=== PATIENT | male | born 1940 | race Caucasian/White ===

== ENCOUNTER 2016-11-16 21:39 | Inpatient (IN) | payer OTHER ==
[2016-11-16] MEDS ORDERED: ASPIRIN PO STA (21:47)
[2016-11-16] MEDS ORDERED: NITROGLYCERIN SL PRN (21:47)
--- NOTE | 2016-11-16 22:15 | PROVIDER DOCUMENTATION ---
HPI-Chest Pain - General Source: patient, family - History of Present Illness-CP Location: reports: central Chest Pain Radiation: reports: no radiation Quality of Pain: reports: other (Heavy) Severity in ED: mild Onset/Duration: 1-3 hours ago Timing: gone now Context/Activities at Onset: reports: light activity Associated Symptoms: reports: fatigue, weakness. denies: abdominal pain, back pain, diaphoresis, dizziness, edema, fever/chills, headache, heartburn, nausea, rash, shortness of breath, swelling/lump in chest, syncope, vomiting Nitro Today/Relief: 0.4 mg x 1, provided at home <Yaya Melendez - Last Filed: 11/16/16 23:56> <Jonathan Reid - Last Filed: 11/17/16 00:11> - General Chief Complaint: Chest Pain Stated Complaint: cp Time Seen by Provider: 11/16/16 21:43 Allergies/Adverse Reactions: Patient Allergies Allergy/AdvReac Type Severity Reaction Status Date / Time morphine Allergy Mild ITCHING Verified 11/16/16 22:20 aspirin AdvReac Intermediate PUD Verified 11/16/16 22:20 Home Medications: Home Medication List Medication Instructions Recorded Confirmed Last Taken Type Levothyroxine [Synthroid] 150 microgm PO DAILY 06/16/12 11/16/16 11/16/16 History SIMVAstatin [Zocor] 20 mg PO QHS 06/16/12 11/16/16 11/15/16 History Digoxin 125 mcg PO DAILY 06/23/12 11/16/16 11/16/16 History Oxycodone/APAP 10 mg/325 mg 1 - 2 each PO Q4-6H PRN PRN #40 08/07/12 11/16/16 Rx [Percocet-10] tablet Amiodarone [Cordarone] 200 mg PO DIRECTED 01/28/14 11/16/16 11/15/16 History Diltiazem HCl [Cartia Xt] 120 mg PO BID 01/28/14 11/16/16 11/16/16 History Theophylline E.r. [Castro-Dur] 300 mg PO Q12HR 01/28/14 11/16/16 11/16/16 08:00 History Memantine [Namenda] 1 tab PO BID 0311/16/16 11/16/16 08:00 History Tamsulosin [Flomax] 0.4 mg PO DAILY #30 capsule 11/10/15 11/16/16 11/15/16 Rx Warfarin Sodium [Coumadin] 6 mg PO QHS 03/09/16 11/16/16 11/15/16 History Metformin HCl 500 mg PO BID 11/16/16 11/16/16 11/16/16 History - History of Present Illness-CP Nature of Presenting Problem: Pt is a 76 yom who presents to ER via EMS with CC of chest pain with onset of 2100 tonight. Pt has hx of dementia, and multiple cardiac issues, but reports that pt has been weak and lethargic all day, trouble walking, confused, and had a poor appetite. reports that she gave pt nitro before EMS arrived , and pt now denies chest pain. (Yaya Melendez) Review of Systems - Adult - REVIEW OF SYSTEMS - ADULT Constitutional: reports: fatique. denies: chills, fever, night sweats, weight gain, weight loss Eyes: reports: no symptoms reported Ears, Nose, Mouth & Throat: reports: no symptoms reported Cardiovascular: reports: chest pain, irregular heart rate (hx of A-fib). denies : edema, heart murmur, orthopnea, palpitations, poor circulation, PND, syncope Respiratory: denies: chronic cough, cough, dyspnea on exertion, excessive sputum production, hemoptysis, pleurisy, shortness of breath, wheezing Gastrointestinal: reports: no symptoms reported Genitourinary: reports: no symptoms reported Musculoskeletal: reports: muscle weakness. denies: bone pain, back pain, frequent leg cramps, joint pain, joint swelling, muscle aches, neck pain Integumentary: reports: no symptoms reported Neurological: reports: no symptoms reported Psychiatric: reports: no symptoms reported Endocrine: reports: no symptoms reported Hematologic/Lymphatic: reports: no symptoms reported Allergic/Immunologic: reports: no symptoms reported All Other Systems: Reviewed and Negative <Yaya Melendez - Last Filed: 11/16/16 23:56> Past History - Adult - PAST MEDICAL HISTORY-ADULT Review of Records: reports: Nursing Assessment Review, Medications Reviewed Cardiovascular: reports: cardiac disease, A-Fib, aortic disease (AAA), CAD, HTN , hyperlipidemia Respiratory: reports: COPD, lung disease (asbestoisis), other (histoplasmosis) Genitourinary: reports: other (BPH) Neurological: reports: Alzheimer's, dementia, TIA Endocrine/Immune: reports: thyroid disorder - PRIOR SURGERIES/PROCEDURES Surgical/Procedure History: reports: CABG, hernia repair, joint replacement, other (cardiac ablation, AAA repair) - IMMUNIZATION STATUS Childhood Immunizations: See Nurse Assessment Flu Vaccine: See Nurse Assessment <Yaya Melendez - Last Filed: 11/16/16 23:56> Physical Exam-General - PHYSICAL EXAM-ADULT Initial Vital Signs Reviewed: Yes - CONSTITUTIONAL General Appearance: appears well, alert, moderate distress, anxious. negative: no apparent distress, mild distress - RESPIRATORY Respiratory: chest non-tender, lungs clear, normal breath sounds, no pleuratic chest pain, no respiratory distress, no accessory muscle use. negative: respiratory distress, decreased breath sounds, accessory muscle use, wheezing - CARDIOVASCULAR Cardiovascular: normal peripheral pulses, tachycardia, irregularly irregular. negative: regular rate, rhythm, bradycardia - GASTROINTESTINAL (ABDOMEN) Abdominal Exam: normal bowel sounds, non tender, soft, no organomegaly, no pulsatile mass. negative: abnormal bowel sounds, distended, tenderness - NEUROLOGIC Neurologic: grossly normal, no motor/sensory deficits. negative: facial droop, focal weakness, motor weakness, sensory deficit - PSYCHIATRIC Psych/Mental Status: normal thought content, normal thought process, anxious, other (disoriented to time). negative: normal mood/affect, oriented x 3 <Yaya Melendez - Last Filed: 11/16/16 23:56> Progress - REASSESSMENT Reassessment #1 Time Reassessed: 23:52 Status: other (Dr. Reid discussed results of pt's labs and pt's does not feel comfortable for pt to be discharged.) - EKG 1 Time of EKG reading by physician:: 21:42 EKG Read and Signed by:: Jonathan Reid EKG Interpretation (*Must complete 3 of following elements*): Abnormal (L axis deviation; LBBB) Rate: 113 Rhythm: A-fib with rapid ventricular responses - XRAY 1 XRAY: Bilateral XRAY Study: Chest Impression: See EMR Report XRAY Interpretation: Cardiomegaly, No acute infiltrate, possible early mild CHF <Yaya Melendez - Last Filed: 11/16/16 23:56> Departure - Departure Time of Disposition Order: 23:53 Certified Medical Emergency: Emergent <Yaya Melendez - Last Filed: 11/16/16 23:56> - Departure Time of Disposition Order: 00:11 Certified Medical Emergency: Emergent <Jonathan Reid - Last Filed: 11/17/16 00:11> - Departure DIAGNOSIS: Shortness of breath Chest pain Qualifiers: Chest pain type: unspecified Qualified Code(s): R07.9 - Chest pain, unspecified Atrial fibrillation Qualifiers: Atrial fibrillation type: unspecified Qualified Code(s): I48.91 - Unspecified atrial fibrillation Disposition: ADMITTED INPATIENT 09 Condition: Stable Referrals: Ralf Yao [Primary Care Provider] - Attestation - Scribe Verification/Attestation Scribe:: Yaya Melendez Acting as Scribe for:: Jonathan Reid Scribe documention review:: This chart was documented by a scribe and accurately reflects the service the provider performed and the decisions made by the provider. <Yaya Melendez - Last Filed: 11/16/16 23:56> Physician Attestation
[2016-11-16 22:24] LABS: BASO% 0.3 % (0.0-0.8); EOS# 0.01 X1000 (0.0-0.7); EOS% 0.1 % (0.0-10.0); HEMATOCRIT 46.1 % (42.0-52.0); HEMOGLOBIN 15.6 g/dL (14.0-18.0); LYMPH# 0.26 X1000 (1.2-3.4); LYMPH% 3.7 % (20.5-51.1); MANUAL DIFF NEEDED? NO; MCHC 33.8 g/dL (33-37); MCV 94.5 FL (81-99); MONO# 0.28 X1000 (0.11-0.59); MPV 11.2 FL (7.4-10.4); NEUT% 91.9 % (42.2-75.2); PLT 135 X1000 (130-400); RBC 4.88 XMIL (4.7-6.1)
[2016-11-16 22:30] LABS: INR 1.6; PTT 33.2 Seconds (22.0-36.0)
[2016-11-16 23:04] LABS: AGAP 15; ALBUMIN 3.8 g/dL (3.5-5.0); ALKALINE PHOSPHATASE 68 U/L (32-122); BUN 12 mg/dL (8-22); CALCIUM 9.1 mg/dL (8.8-10.2); CHLORIDE 99 mmol/L (98-107); CK PROFILE 60 U/L (24-204); COSMO 273; GOT 20 U/L (10-34); GPT 17 U/L (10-44); MAGNESIUM 1.3 mg/dL (1.5-2.7); POTASSIUM 3.9 mmol/L (3.5-5.1); SODIUM 135 mmol/L (136-145); TCO2 21 mmol/L (25-35); TOTAL BILIRUBIN 0.91 mg/dL (0.20-1.00); TOTAL PROTEIN 6.8 g/dL (6.3-8.3)
[2016-11-17] MEDS ORDERED: MAGNESIUM SULFATE 2 GM/S.W.I. 50 ML IV ONE (01:25)
[2016-11-17] MEDS ORDERED: ZOFRAN IV PRN (02:13)
[2016-11-17] MEDS ORDERED: LASIX IV ONE (02:20)
[2016-11-17 03:15] LABS: HEMOGLOBIN A1C 6.9 % (4.8-6.0)
--- NOTE | 2016-11-17 05:31 | HISTORY AND PHYSICAL ---
CHIEF COMPLAINT: Chest pain. PRIMARY CARE PROVIDER: Dr. Ralf Yao. EXHAUSTER: Dr. Sigala. HISTORY OF PRESENT ILLNESS: This is a 76-year-old male who presented to the emergency room with a complaint of chest pain. He stated that it had no radiation. It was a heavy feeling, midsternal. Mild pain, roughly 1-3 hours prior to arrival. He denied any nausea, vomiting, or shortness of breath associated with the pain. He is demented. Does have a history of dementia, coronary artery disease, status post coronary artery bypass graft, and emphysema. His was at the bedside. Stated that he did have complaint of chest pain so they brought him into the emergency room. At this time, he is oriented to person and place. Disoriented to time and situation. He answered some questions reasonably well but most information was obtained from the . The patient also has diabetes mellitus type 2 and atrial fibrillation for which he is chronically anticoagulated with Coumadin. Laboratory data and a chest x-ray was obtained in the emergency room. Chest x-ray showed mildly increased pulmonary vascular markings. Laboratory data was grossly normal other than a proBNP elevated at 3469 and a magnesium of 1.3. The patient will be given 20 mg of IV Lasix in the emergency room and 2 g of magnesium. He will then be admitted to CICU for further evaluation and treatment. PAST MEDICAL HISTORY: 1. Hypertension. 2. Atrial fibrillation with chronic Coumadin anticoagulation. 3. Coronary artery disease, status post coronary artery bypass grafting. 4. TIA. 5. Dementia. 6. Emphysema. 7. Abdominal aortic aneurysm. 8. Diabetes mellitus type 2. PREVIOUS SURGICAL HISTORY: 1. Hernia ablation. 2. Coronary artery bypass graft in 1991. 3. Bilateral total knee arthroplasty. FAMILY HISTORY: Mom had diabetes mellitus and coronary artery disease, has since . Sister, he has 1 living and 1 . Both had coronary artery disease. He has a son that is in his 50s that at age 50 had 4 cardiac stents and was told that he, within the next 10 years, would have coronary artery bypass grafting himself. SOCIAL HISTORY: He lives with his . He denies any tobacco, alcohol, or illicit drug use or abuse. ALLERGIES: Morphine and aspirin. HOME MEDICATIONS: 1. Synthroid 150 mcg p.o. daily. 2. Zocor 20 mg p.o. at bedtime. 3. Digoxin 125 mcg p.o. daily. 4. Percocet 10 mg 1-2 p.o. q.4-6 p.r.n. 5. Amiodarone 200 mg p.o. every Friday, Friday, and Friday. 6. Cardizem 120 mg extended release p.o. b.i.d. 7. Theophylline 300 mg p.o. q.12 hours. 8. Namenda 1 tablet p.o. b.i.d. 9. Flomax 0.4 mg p.o. daily. 10. Coumadin 6 mg p.o. at bedtime. 11. Metformin 500 mg p.o. b.i.d. REVIEW OF SYSTEMS: Fourteen point review of systems conducted with the patient. He admitted to chest pain. Denied all other complaints. However, he is noted to have dementia. The at the bedside did not make mention of any other complaints. Pertinent positives listed above in the HPI. PHYSICAL EXAMINATION: VITAL SIGNS: Temperature 100, pulse 103, respirations 22, blood pressure 139/82, oxygen saturation 96% on 3 L nasal cannula. GENERAL: Pleasantly confused, 76-year-old male lying on the ER stretcher in no acute distress. Oriented to person and place. Disoriented to time and situation. HEENT: Head is atraumatic, normocephalic. Pupils equal, round, reactive to light. Extraocular eye movement intact. Sclerae are anicteric. Conjunctivae are pink. Oral mucosa is moist. NECK: Supple. No JVD. No thyromegaly. Trachea is midline. No cervical lymphadenopathy. CARDIAC: Irregularly irregular. S1 and S2 are appreciated. No murmurs, gallops, rubs. CHEST WALL: Nontender to palpation. LUNGS: Decreased bilaterally. No rhonchi. Bilateral crepitations noted at bases. No rales. Symmetrical rise and fall with respirations. ABDOMEN: Soft, nondistended, nontender. Bowel sounds present in all 4 quadrants. Normoactive. No pulsatile mass. No organomegaly. EXTREMITIES: No clubbing, cyanosis, or edema. NEUROLOGICAL: Patient follows commands. He is only oriented x2, related to dementia. He is oriented to person and place. Disoriented to time and situation. Cranial nerves 2-12 appear to be grossly intact. DIAGNOSTIC DATA: Chest x-ray shows increased pulmonary vascular markings. LABORATORY DATA: CBC within normal limits. Coagulations: PT 17, INR 1.6, PTT 33.2. D-dimer 0.8. Sodium 135, potassium 3.9, chloride 99, carbon dioxide 21, BUN 12, creatinine 1.1, glucose 154. Magnesium 1.3. CK 60, troponin less than 0.01. ProBNP 3469. ASSESSMENT: 1. Chest pain, rule out acute myocardial infarction. 2. Apparent congestive heart failure with mild exacerbation. Last echocardiogram was on 01/28/2014 which showed an ejection fraction of 35-40%. 3. Diabetes mellitus type 2. 4. Hypertension. 5. Dementia. 6. Coronary artery disease, status post coronary artery bypass grafting. PLAN: Continue patient's home medications aside from Namenda which the does not know his dosing as well as his oxycodone as he denies pain at this time. For atrial fibrillation, continue amiodarone, digoxin, and Cardizem. For diabetes mellitus, we will continue his metformin, check fingersticks q.a.c. and at bedtime. Related to his atrial fibrillation, we also continued his Coumadin. Check INR daily. The patient has hyperlipidemia. Continue Zocor. The patient also was noted as having Synthroid as a medication. Apparently, he also has hypothyroidism. We will check a TSH level and continue this. Check a theophylline level. Consult Dr. Sigala. As noted above, Lasix 20 mg was given in the emergency room. Trend cardiac enzymes. The patient is allergic to aspirin. We will not give aspirin daily. Check hemoglobin A1c. Further recommendations per patient's clinical course. Dictated by CARLIN Torres for Bryan Kumar MD
--- NOTE | 2016-11-17 06:04 | EKG Report ---
Test Performed on : 11/16/2016 9:42:58 PM Test Reason : CP Blood Pressure : / mmHG Vent. Rate : 113 BPM Atrial Rate : 113 BPM P-R Int : 000 ms QRS Dur : 142 ms QT Int : 360 ms P-R-T Axes : 000 -38 079 degrees QTc Int : 493 ms Atrial fibrillation. with rapid ventricular response. Left axis deviation Left bundle branch block Abnormal ECG When compared with ECG of 09-MAR-2016 21:59, Atrial fibrillation. has replaced Sinus rhythm. Vent. rate has increased BY 53 BPM Nonspecific T wave abnormality no longer evident in Inferior leads Unconfirmed Result
[2016-11-17] MEDS ORDERED: SYNTHROID PO SCH (07:00)
[2016-11-17] MEDS: PRILOSEC PO SCH (07:00)
[2016-11-17] MEDS: GLUCOPHAGE PO SCH ×2 (08:00→17:49)
[2016-11-17] MEDS: LANOXIN PO SCH (08:40)
[2016-11-17] MEDS: CARDIZEM CD PO SCH ×2 (08:40→20:08)
[2016-11-17] MEDS: FLOMAX PO SCH (08:40)
[2016-11-17] MEDS: NON-FORMULARY MED PO SCH ×2 (08:41→20:09)
[2016-11-17] MEDS ORDERED: ASPIRIN PO SCH (09:00)
[2016-11-17 10:51] LABS: INR 1.42; PROTIME 15.1 Seconds (9.2-11.7)
--- NOTE | 2016-11-17 13:41 | Diag Imaging Result Document ---
PROCEDURE NAME: CHEST-PORTABLE - 11/16/2016 SINGLE FRONTAL RADIOGRAPH OF THE CHEST: COMPARISON: 03/09/2016. FINDINGS: The lungs are grossly clear. There is no definite pleural fluid collection. There is suggestion of mild cardiomegaly that is stable. There are stable CABG changes. IMPRESSION: Stable mild cardiomegaly. No definite acute pathology.
--- NOTE | 2016-11-17 16:40 | ECHO REPORT ---
ORDER DATE: 11/17/2016 ECHOCARDIOGRAPHIC MEASUREMENTS: 1. Interventricular septum 1.7. Left ventricular posterior wall 1.7. Diastolic diameter 4.0. Left atrium 4.6. Aorta 3.6. Aortic valve leaflets were sclerosed, trileaflet, the normally pulmonic valve was normal. Tricuspid valve was normal. Mitral valve was normal. There is mild mitral regurgitation. 2. Mild tricuspid regurgitation. Peak velocity across the tricuspid valve was 2.7 m/sec. Pulmonary artery systolic pressure 41-45 mmHg. 3. There is biatrial enlargement. 4. Normal left ventricular cavity size. Estimated ejection fraction of 30-35%. There is global hypokinesis. 5. There is no pericardial effusion or obvious intracardiac mass or thrombus seen. 6. There is no aortic stenosis or regurgitation.
--- NOTE | 2016-11-17 17:49 | CONSULTATION ---
DATE OF CONSULTATION: 11/17/2016 REASON FOR CONSULTATION: Cardiology consulted for chest pain, congestion and coronary artery bypass grafting. HISTORY OF PRESENT ILLNESS: A 76-year-old gentleman, came to the emergency room with chest discomfort. He felt heaviness in his chest. He has mild dementia and his granddaughter was there present during my examination. The chest discomfort was about 1-2 hours prior to arrival, not associated with nausea, vomiting. Patient came, was admitted. His cardiac enzymes were negative. Cardiology was consulted. Prior to this, he is followed up in our office here. He has had coronary artery bypass grafting, has abdominal aortic aneurysm, chronic atrial fibrillation. He denies any palpitations, there is no dizziness or syncope. Denies any abdominal discomfort. He is on anticoagulation therapy. Denies any bleeding diatheses. Chest pain nonradiating. REVIEW OF SYSTEMS: GI: There is no history of nausea, vomiting, or diarrhea. There is no history of hematemesis or melena. Central nervous system: No focal weakness to suggest a CVA or TIA. : There is no dysuria or hematuria. PAST MEDICAL HISTORY: 1. Coronary artery disease, status post coronary artery bypass grafting 20 [place] ago in [place]. 2. Dementia. 3. History of TIA. 4. Atrial fibrillation. 5. Hypertension. 6. Abdominal aorta aneurysm. 7. Diabetes. 8. Emphysema. 9. Bilateral total knee arthroplasty. 10. Hernia repair. HOME MEDICATIONS: 1. Synthroid 150. 2. Zocor 20. 3. Digoxin 125. 4. Percocet. 5. Amiodarone 200 mg Friday, Friday, Friday. 6. Cardizem 120. 7. Theophylline 300 mg. 8. Namenda 1 b.i.d. 9. Flomax 0.4. 10. Coumadin as directed. 11. Metformin 500 be 0 b.i.d. ALLERGIES: Patient is allergic to aspirin. 14 point Review of system was done as above. PHYSICAL EXAMINATION: Vital signs: Blood pressure was 130/80. Cardiovascular System: Normal jugular venous pressure. There is no thyromegaly, there is no carotid bruit. First and second heart sounds were heard. There is no S3 gallop. Respiratory System: Normal air entry. A few scattered wheezes. Abdomen: Soft, nontender. There was no guarding or rigidity. Bowel sounds were heard. Central nervous system: Alert and oriented, was moving all 4 extremities. Extremities: Examination of extremities revealed no pedal edema. HEENT: Atraumatic, normocephalic. Pupils were equal and reacting to light. LABORATORY: Revealed sodium 135, potassium 3.9, BUN 12, creatinine 1.1. Cardiac enzymes were negative. Hematology: Hemoglobin 15.6, hematocrit 46, platelet count of 135,000. ASSESSMENT AND PLAN: 1. Mr. Dominique witt is a 76-year-old, gentleman with history of coronary artery disease, status post coronary artery bypass grafting, chronic atrial fibrillation, comes with complaints of chest pain. He has been ruled out for myocardial infarction by cardiac enzymes. We will get an echocardiogram to assess cardiac and valvular function. We will also set him up to undergo a Cardiolite stress test to rule out ischemia. 2. Chronic atrial fibrillation. Rate is under control. He is anticoagulated. I have not made any other changes to his medications. He is on a combination of digoxin and amiodarone. We will check serum digoxin levels in the morning. 3. As far as abdominal aortic aneurysm is concerned, he has history of abdominal aortic aneurysm. The last computed tomography scan was done in 2012. We will set him up to undergo a computed tomography angiogram of his aorta to assess for the abdominal aortic aneurysm as well. His last computed tomography scan was on 06/01/2013, which revealed infrarenal abdominal aorta aneurysm measuring 4 cm and in some views up to 5 cm per report. 4. There was no hydronephrosis at that time. There was diverticulosis noted at that time as well. Thank you for the consult. We will follow hospital course.
[2016-11-17] MEDS: ZOCOR PO SCH (20:08)
[2016-11-17] MEDS: COUMADIN PO SCH (20:08)
[2016-11-18 05:17] LABS: MANUAL DIFF NEEDED? NO
[2016-11-18 05:26] LABS: INR 1.2; PROTIME 12.7 Seconds (9.2-11.7)
[2016-11-18 05:35] LABS: HEMATOCRIT 39.1 % (42.0-52.0); HEMOGLOBIN 13.5 g/dL (14.0-18.0); IMM GRAN# 0.02 X1000 (0.0-0.04); IMM GRAN% 0.4 % (0.0-0.5); LYMPH# 0.47 X1000 (1.2-3.4); LYMPH% 8.3 % (20.5-51.1); MCHC 34.5 g/dL (33-37); MCV 92.7 FL (81-99); MONO# 0.46 X1000 (0.11-0.59); MONO% 8.1 % (1.7-9.3); MPV 10.7 FL (7.4-10.4); NEUT% 83.2 % (42.2-75.2); PLT 103 X1000 (130-400); RBC 4.22 XMIL (4.7-6.1)
[2016-11-18 05:46] LABS: CALCIUM 8.5 mg/dL (8.8-10.2); MAGNESIUM 1.6 mg/dL (1.5-2.7)
[2016-11-18 06:05] LABS: DIGOXIN 0.6 ng/mL (0.9-2.0)
[2016-11-18] MEDS: PRILOSEC PO SCH (06:21)
[2016-11-18] MEDS: SYNTHROID PO SCH (06:22)
[2016-11-18] MEDS: TYLENOL PO PRN ×2 (06:28→19:04)
[2016-11-18] MEDS ORDERED: SYNTHROID PO SCH (07:00)
[2016-11-18] MEDS ORDERED: CORDARONE PO SCH (09:00)
--- NOTE | 2016-11-18 09:39 | Diag Imaging Result Document ---
PROCEDURE NAME: CTA ABD/PELVIS W/CONTRAST - 11/18/2016 CT ANGIOGRAM OF THE ABDOMEN AND PELVIS WITH INTRAVENOUS CONTRAST: A CT dose reduction protocol was used. COMPARISON: 05/22/2016. FINDINGS: Axial CT images of the abdomen and pelvis were obtained after administering intravenous contrast. Coronal and sagittal reformats and 3-dimensional reformats were generated. There are numerous bilateral nonobstructing renal stones stable from prior. Stable bilateral renal cortical scarring as well. There is a stable infrarenal aortobiiliac stent that is patent. No evidence of stent leak. There has been slight decrease in the size of the aorta. At the inferior poles of the kidneys, the aorta measures about 3.3 x 2.7 cm in AP and lateral dimensions. There is severe diverticulosis of the sigmoid colon. No bowel obstruction or inflammation. There is heavy vascular calcification of the proximal-mid superior mesenteric artery but no significant stenosis. There is heavy disease of the origins of the renal arteries. There is moderately extensive stenosis on the left by about 50%. No significant stenosis on the right. The inferior mesenteric artery is not visible. The iliac artery systems are heavily diseased. The internal iliac arteries demonstrate moderate stenosis bilaterally of about 50%. External iliac arteries are patent. There is very heavy plaque buildup of the common iliac arteries. On the right side, there is severe stenosis of about 75%. On the left, there is moderate stenosis of about 40%. Visualized portions of the superficial and deep femoral artery systems are grossly patent. IMPRESSION: 1. No complication from the aortic aneurysm stent. Decrease in size of the abdominal aortic aneurysm. 2. Renal artery stenosis. 3. Peripheral vascular disease. 4. Bilateral nephrolithiasis and renal cortical scarring. 5. Diverticulosis coli. 6. Cholelithiasis. [facility]
[2016-11-18] MEDS ORDERED: LEXISCAN ONE (10:20)
[2016-11-18] MEDS: NON-FORMULARY MED PO SCH ×2 (12:09→20:49)
[2016-11-18] MEDS: GLUCOPHAGE PO SCH ×2 (12:10→16:05)
[2016-11-18] MEDS: LANOXIN PO SCH (12:10)
[2016-11-18] MEDS: CARDIZEM CD PO SCH ×2 (12:10→20:49)
[2016-11-18] MEDS: FLOMAX PO SCH (12:10)
--- NOTE | 2016-11-18 14:06 | PROGRESS NOTE ---
DATE: 11/18/2016 SUBJECTIVE: The patient reports feeling fine. No chest pain noted. OBJECTIVE: Vital Signs: Temperature 101.0 degrees, heart rate 104, respiratory rate 18, blood pressure 123/70, O2 saturation 98% on 2 L nasal cannula. General Examination: This is a 76-year- old male, lying in bed, in no acute distress. HEENT: Head is normocephalic, atraumatic. Anicteric sclerae. Pale conjunctivae. Mucous membranes moist. Neck: Supple. No JVD noted. No carotid bruits. No lymphadenopathy. No thyromegaly. Cardiovascular: S1, S2 heard. No murmurs, gallops, or rubs. Regular rate and rhythm. Respiratory: Clear bilaterally to auscultation with some scattered wheezing in both bases. Patient is not using any accessory muscles or having work of breathing. Abdomen: Soft. Nontender to palpation. Bowel sounds present. No organomegaly. Extremities: No clubbing, cyanosis, or edema. Peripheral pulses present in both legs. Neurological: Patient is alert and oriented x3. Moves 4 extremities. LABORATORY DATA: White cell count 5.67, hemoglobin 13.5, hematocrit 39.1, platelets 103,000. Sodium 132, potassium 4.0, chloride 97, bicarb 21, BUN 22, creatinine 1.2. ASSESSMENT: 1. Chest pain. 2. Chronic atrial fibrillation. 3. Diabetes mellitus type 2. 4. Hypertension. 5. Dementia. 6. Coronary artery disease. PLAN: Patient now reports feeling better. We have checked troponins and we have ruled out a myocardial infarction. Because of history of coronary artery disease we are going to do a stress test and we will go from there. Cardiology is following this patient. For diabetes, we will continue with sliding scale insulin. For hypertension, we will continue home medications. For dementia, will continue home medications as well.
--- NOTE | 2016-11-18 14:23 | Diag Imaging Result Document ---
PROCEDURE NAME: CT THORAX W/O CONTRAST - 11/18/2016 CT CHEST: A CT dose reduction protocol was used. COMPARISON: 1. CT abdomen pelvis earlier 11/18/2016. 2. CT chest 01/11/2013. FINDINGS: There is extensive patient motion artifact. There is probably some bronchitis diffusely. No infiltrates. Stable CABG changes. Heart size is top normal. No mass or adenopathy. Severe degenerative change of the right shoulder. Rather advanced degeneration throughout the thoracolumbar spine. No acute bony lesions. IMPRESSION: Bronchitis. [facility]
[2016-11-18] MEDS: ZOCOR PO SCH (20:48)
[2016-11-18] MEDS: COUMADIN PO SCH (20:49)
[2016-11-18] MEDS ORDERED: PERCOCET-5 PO PRN (21:49)
[2016-11-19 05:14] LABS: INR 1.13
[2016-11-19] MEDS: SYNTHROID PO SCH (06:06)
[2016-11-19] MEDS: PRILOSEC PO SCH (06:06)
[2016-11-19] MEDS: CARDIZEM CD PO SCH (08:44)
[2016-11-19] MEDS: LANOXIN PO SCH (08:44)
[2016-11-19] MEDS: GLUCOPHAGE PO SCH (08:44)
[2016-11-19] MEDS: FLOMAX PO SCH (08:44)
[2016-11-19] MEDS: NON-FORMULARY MED PO SCH (08:45)
[2016-11-19] MEDS ORDERED: ROCEPHIN 1 GM/NS 50 ML IV SCH (10:00)
[2016-11-19 10:49] LABS: MANUAL DIFF NEEDED? NO
[2016-11-19 10:51] LABS: BASO% 0.2 % (0.0-0.8); HEMATOCRIT 39.1 % (42.0-52.0); HEMOGLOBIN 13.4 g/dL (14.0-18.0); IMM GRAN# 0.02 X1000 (0.0-0.04); IMM GRAN% 0.4 % (0.0-0.5); LYMPH# 0.84 X1000 (1.2-3.4); LYMPH% 18.1 % (20.5-51.1); MCH 31.8 PG (27-31); MCHC 34.3 g/dL (33-37); MCV 92.9 FL (81-99); MONO# 0.49 X1000 (0.11-0.59); MONO% 10.5 % (1.7-9.3); MPV 11.5 FL (7.4-10.4); NEUT% 70.8 % (42.2-75.2); PLT 102 X1000 (130-400); RBC 4.21 XMIL (4.7-6.1)
[2016-11-19 11:22] LABS: AGAP 12; BUN 19 mg/dL (8-22); CALCIUM 8.9 mg/dL (8.8-10.2); CHLORIDE 98 mmol/L (98-107); COSMO 277; SODIUM 134 mmol/L (136-145); TCO2 24 mmol/L (25-35)
[2016-11-19] MEDS ORDERED: DUONEB (A & A) INH SCH (11:30)
[2016-11-19 12:13] VITALS: BP 116/57
--- NOTE | 2016-11-19 12:30 | Diag Imaging Result Document ---
PROCEDURE NAME: MYOCARDIAL PERF SCAN, STR/REST - 11/18/2016 SUMMARY: The patient was administered 11.8 millicuries of technetium-99m sestamibi after which resting cardiac images were obtained. The patient was subsequently stressed using a Lexiscan protocol. Following the administration of Lexiscan, the heart rate increased from 91 beats per minute to 96 beats per minute. The blood pressure went from 127/74 to 118/66. With Lexiscan, the patient denied chest discomfort. Following the administration of Lexiscan, the patient was administered 33.7 millicuries of technetium-99m sestamibi after which gated stress cardiac images were obtained. Baseline ECG demonstrated sinus rhythm, nonspecific intraventricular conduction abnormality, and inferolateral ST and T-wave abnormality, considering inferolateral ischemia. Following the administration of Lexiscan, baseline ST and T-wave abnormality did not change significantly. Moderate ventricular ectopy was observed. Baseline ECG demonstrated atrial fibrillation, nonspecific interventricular conduction delay, and inferolateral ST and T-wave abnormality, cannot exclude inferolateral ischemia. With Lexiscan, there were no diagnostic ST-segment changes. Occasional premature ventricular or aberrantly conducted complex and inferolateral ST and T-wave abnormality. Following the administration of Lexiscan, baseline ST and T-wave abnormality did not change significantly. Moderate ventricular ectopy was observed. SPECT images were reconstructed in the short, horizontal, long, and vertical axes. Review of these images demonstrated enlarged region of severely decreased activity in the inferior wall on stress images which appears unchanged on resting images. No significant reversibility is evident. Gated images demonstrate a calculated left ventricular ejection fraction of 17% in the setting of global hypokinesis and dyskinesis of the inferior wall. CONCLUSIONS: 1. Adequate response to Lexiscan. 2. Clinically negative for chest pain. 3. Electrocardiographically baseline ST and T-wave abnormality did not change significantly with Lexiscan. 4. Lexiscan sestamibi images demonstrate large fixed severe perfusion defect in the inferior wall with corresponding dyskinesis consistent with previous inferior infarction. No significant reversibility is evident and there is no convincing scintigraphic evidence of inducible myocardial ischemia. Severely depressed left ventricular systolic function indicated with left ventricular ejection fraction of 17%.
--- NOTE | 2016-11-19 13:55 | PROGRESS NOTE ---
DATE: 11/19/2016 SUBJECTIVE: Family is at the bedside. This patient states that he is feeling a bit better. He is complaining about cough and some chills. He states also that upon admission he presented with fever. He had a CT scan done yesterday that showed bronchitis. I will put this patient on antibiotics. Yesterday also he had a stress test done. Cardiology is evaluating this and they will come out with the results; they are pending. He is not complaining of chest pain and the troponins have been negative x4. This patient is on warfarin which subtherapeutic; today it is 1.13. He is not in A-fib at this moment. He is tachycardic. OBJECTIVE: Vital Signs: Temperature 98.7 degrees, pulse 82, pulse 118, blood pressure 111/57, oxygen saturation is 97% on 2 L of nasal cannula. HEENT: Head normocephalic. No trauma. PERRLA. Neck: Supple. No JVD. No masses. Central trachea. Chest: Bilateral scattered rhonchi. No wheezing. Patient is not using any accessory muscles or having work of breathing. Abdomen: Soft, nontender, nondistended. No hepatosplenomegaly. Cardiovascular: RRR. Tachycardic. Extremities: No edema. No clubbing. No cyanosis. Neurological: The patient is alert and oriented x3. He moves all 4 extremities. LABORATORY: PT 12, INR 1.13. Glucose 130. CBC and CMP are pending at this moment. ASSESSMENT AND PLAN: 1. Chest pain. Pending cardiology re-evaluation and stress test results. At this moment this patient is not complaining of chest pain. We will continue to monitor and follow the recommendations of cardiology department. 2. Chronic atrial fibrillation. At this moment this patient is in normal sinus rhythm. He is on warfarin, the same dose that he was getting at home but the INR is subtherapeutic. Will continue with the same management. 3. Bronchitis. We did a CT scan yesterday that showed bronchitis. He has been having on and off chills. I put this patient on antibiotics. 4. Type 2 diabetes. We will continue with the same management. The blood sugar is controlled. 5. Hypertension. We will continue with home medications. Cardiology department is following this patient. 6. Dementia, aware. Continue with the same management. 7. Coronary artery disease, aware. 8. Overall, this patient is doing better. I put this patient on antibiotics because of the bronchitis and chills. If cardiology evaluates this patient and they say that this patient can followup as an outpatient, I will send this patient home with antibiotics. CRITICAL CARE TIME: 35 minutes.
[2016-11-19] MEDS ORDERED: COUMADIN PO ONE (14:06)
[2016-11-19] MEDS ORDERED: KEFLEX PO SCH (21:00)
[2016-11-19] MEDS ORDERED: MUCOMYST 20% PO SCH (21:00)
--- NOTE | 2016-11-20 06:39 | DISCHARGE SUMMARY ---
ADMISSION DATE: 11/17/2016 DISCHARGE DATE: 11/19/2016 CONSULTATIONS: Dr. Parham, Cardiology. PERTINENT PROCEDURES: 1. Stress test demonstrated a large severe perfusion defect in the inferior wall with corresponding dyskinesis consistent with previous inferior infarction. No significant reversibility is evident and there is no convincing scintigraphic evidence of inducible myocardial ischemia. Severe depressed LV systolic function indicating LV ejection fraction of 17%. 2. Abdomen pelvis CTA showed no complications from the aortic aneurysm stent, decrease in the size of the abdominal aortic aneurysm, renal artery stenosis, peripheral vascular disease, bilateral nephrolithiasis and renal cortical scarring, diverticulosis coli, cholelithiasis. Chest CT showed bronchitis. DISCHARGE DIAGNOSES: 1. Chest pain ruled out with stress test which just showed an old fixed defect but no reversible ischemia. He will continue on his medical medicines as prescribed. 2. Chronic atrial fibrillation. Continue with Coumadin. The patient will need an INR in 2 days and follow up with the [facility] then to adjust dosage. 3. Diabetes mellitus type 2. Continue home medications. 4. Hypertension. Continue home medications. 5. Dementia, aware. 6. Coronary artery disease, aware. HOSPITAL COURSE: Mr. Oneill is a 76-year-old male who presented with a past medical history of hypertension, atrial fibrillation on chronic Coumadin therapy, coronary artery disease status post CABG, TIA, dementia, emphysema, diabetes mellitus type 2, AAA with stenting. Patient reported to the ED with complaints of chest pain without radiation, just a heavy feeling midsternal mild pain roughly 1-3 hours prior to arrival. No associated nausea, vomiting, or shortness of breath. The patient does have a history of dementia; he was demented. His was at the bedside and stated that he did have complaint of chest pain so she brought him to the emergency room. At the time of his assessment he was oriented to person and place, disoriented to time and situation. He did answer some questions reasonably but most information was obtained from the . LABORATORY DATA: A chest x-ray was obtained in the emergency room. Chest x-ray did show mildly increased pulmonary vascular markings. Laboratory data was grossly normal other than a BNP elevated at 3469 and a Mag of 1.3. The patient was given 20 mg of Lasix in the emergency department along with 2 g of Mag. He was admitted to the [facility] with a cardiology consult. The patient's cardiac enzymes were trended. They were negative. Patient did undergo a stress test that did not show any reversible defects. He also underwent a CT of the chest, abdomen and pelvis. It did show that there were no complications from the aortic aneurysm stent. There was actually a decrease in the size of the abdominal aortic aneurysm. Per Cardiology, the patient will remain on his same treatment. They are going to keep him on Cardizem CD at 120 p.o. b.i.d. That is how he has been getting treated as an outpatient. It has been working for him. They will increase his Coumadin tonight. We will recheck an INR level in 2 days. He will follow up with the [facility]mad[facility] Clinic in 2 days to adjust the dosage. Dr. Finley has assessed the patient along with Cardiology. They feel that he is appropriate for discharge home today. DISCHARGE VITAL SIGNS: Temperature is 98.7 degrees, heart rate 82, respirations 16, blood pressure is 111/57, O2 is 97%. DISCHARGE MEDICATIONS: As per Dr. Finley. FOLLOW UP: Patient is being discharged home with his . Patient will follow up with Dr. Parham on 12/13/2016 at 9 a.m., as well as his primary care physician, Ralf Yao in 7-10 days. Patient can return to the ED for any worsening of symptoms. DISCHARGE TIME: 30 minutes. Dictated by CARLIN Bernardo for Ramy Linares MD
== END 2016-11-19 15:05 | disposition home or self-care (01) | DRG 313 ==
LOC: EDUNIT# → EDBD → ED 21:39 → EDIPHOLD 11-17 02:25 → 3S 11-17 14:13
PROVIDERS: ATTEND Internal Medicine
DX: R07.2 Precordial pain (principal); I25.10 Atherosclerotic heart disease of native coronary artery without angina pectoris; F03.90 Unspecified dementia, unspecified severity, without behavioral disturbance, psychotic disturbance, mood disturbance, and anxiety; I48.2 Chronic atrial fibrillation; J43.9 Emphysema, unspecified; J40 Bronchitis, not specified as acute or chronic; E11.9 Type 2 diabetes mellitus without complications; I10 Essential (primary) hypertension; I71.4 Abdominal aortic aneurysm, without rupture; Z96.653 Presence of artificial knee joint, bilateral; E78.5 Hyperlipidemia, unspecified; E03.9 Hypothyroidism, unspecified; K57.30 Diverticulosis of large intestine without perforation or abscess without bleeding; R79.1 Abnormal coagulation profile; Z95.1 Presence of aortocoronary bypass graft; Z79.01 Long term (current) use of anticoagulants; Z86.73 Personal history of transient ischemic attack (TIA), and cerebral infarction without residual deficits; Z83.3 Family history of diabetes mellitus; Z82.49 Family history of ischemic heart disease and other diseases of the circulatory system; Z79.899 Other long term (current) drug therapy; Z79.84 Long term (current) use of oral hypoglycemic drugs
CPT/HCPCS: 71010; 71250; 74174; 78452; 80048; 80053; 80061; 80162; 80198; 82550; 82948; 83036; 83721; 83735; 83880; 84443; 84484; 85025; 85379; 85610; 85730; 93005; 93017; 93306; 94640; 94761; 96365; 96375; A9500; J0696; J1940; J3475; Q9967

== ENCOUNTER 2019-01-01 12:27 | Inpatient (IN) ==
[2019-01-01 13:17] LABS: BASO# 0.01 X1000 (0.0-0.2); BASO% 0.1 % (0.0-0.8); EOS# 0.01 X1000 (0.0-0.7); EOS% 0.1 % (0.0-10.0); HEMATOCRIT 41.9 % (42.0-52.0); HEMOGLOBIN 14.4 g/dL (14.0-18.0); IMM GRAN# 0.03 X1000 (0.0-0.04); IMM GRAN% 0.3 % (0.0-0.5); LYMPH# 0.63 X1000 (1.2-3.4); LYMPH% 7.3 % (20.5-51.1); MCH 32.5 PG (27-31); MCHC 34.4 g/dL (33-37); MCV 94.6 FL (81-99); MONO# 0.52 X1000 (0.11-0.59); MPV 10.4 FL (7.4-10.4); NEUT# 7.41 X1000 (1.4-6.5); NEUT% 86.2 % (42.2-75.2); PLT 185 X1000 (130-400); RBC 4.43 XMIL (4.7-6.1); RDW 14.2 % (11.5-14.5); WBC 8.61 X1000 (4.8-10.8)
[2019-01-01] MEDS ORDERED: NS 500 ML IV ONE (13:33)
[2019-01-01 13:34] LABS: AGAP 11; ALB/GLOB RATIO 0.9; ALBUMIN 3.8 g/dL (3.5-5.0); ALKALINE PHOSPHATASE 502 U/L (32-122); AMYLASE 1254 U/L (20-200); BUN 17 mg/dL (8-22); CALCIUM 9.6 mg/dL (8.8-10.2); CHLORIDE 97 mmol/L (98-107); COSMO 274; CREATININE 1.1 mg/dL (0.7-1.2); ESTIMATED GFR > 60; GLUCOSE 203 mg/dL (70-104); GOT 93 U/L (10-34); GPT 76 U/L (10-44); POTASSIUM 4.8 mmol/L (3.5-5.1); SODIUM 133 mmol/L (136-145); TCO2 25 mmol/L (25-35); TOTAL BILIRUBIN 10.14 mg/dL (0.20-1.00)
[2019-01-01] MEDS ORDERED: DILAUDID IV ONE (13:34)
[2019-01-01] MEDS ORDERED: ZOFRAN IV ONE (13:34)
[2019-01-01 13:40] LABS: LIPASE 1867 U/L (13-60)
--- NOTE | 2019-01-01 15:27 | Diag Imaging Result Doc PS360 ---
US GB < RUQ (LIMITED) - 01/01/2019 INDICATION: ruq pain TECHNIQUE: COMPARISON: CT from 12/31/2018 FINDINGS: The liver is normal. There are several shadowing stones in the gallbladder. The gallbladder is very distended. The gallbladder wall measures about 3 mm. Common bile duct measures 5 mm. The pancreas is obscured. The right kidney is normal. Aorta, IVC, and main portal vein are patent. IMPRESSION: No change from prior. Very distended gallbladder with several gallstones inside. Early cholecystitis cannot be excluded. Electronically signed by Shar Monzon 01/01/2019 3:24 PM
[2019-01-01 15:34] LABS: URINE SOURCE CLEAN CATCH
[2019-01-01 15:44] LABS: BILIRUBIN URINE LARGE (NEGATIVE); BLOOD URINE TRACE (NEGATIVE); COLOR ORANGE; GLUCOSE URINE 150 mg/dL (NEGATIVE); KETONE URINE 10 mg/dL (NEGATIVE); LEUKOCYTES URINE NEGATIVE (NEGATIVE); NITRITE URINE NEGATIVE (NEGATIVE); PH URINE 5.5; PROTEIN URINE 50 mg/dL (NEGATIVE); SP GRAVITY URINE 1.024; TURBIDITY URINE HAZY (CLEAR); UROBILINOGEN URINE 6 mg/dL (NORMAL)
[2019-01-01 15:45] LABS: UR EPITHELIAL CELLS <10 /HPF (<10); URINE BACTERIA NEGATIVE /HPF; URINE WBC <10 /HPF (<10)
[2019-01-01 15:53] LABS: INR 2.47; PROTIME 28.6 Seconds (11.0-16.0)
[2019-01-01 15:54] LABS: PTT 55.4 Seconds (22.3-41.8)
[2019-01-01] MEDS ORDERED: ZOSYN 3.375 GM in NS 50 ML IV ONE (16:03)
[2019-01-01] MEDS ORDERED: NS 1,000 ML IV ONE (16:09)
[2019-01-01] MEDS ORDERED: ZOFRAN IV PRN (17:00)
[2019-01-01] MEDS ORDERED: BENADRYL IV PRN ×2 (17:05→17:32)
[2019-01-01] MEDS ORDERED: DEMEROL IV PRN (17:06)
[2019-01-01] MEDS ORDERED: VITAMIN K SUBQ ONE (17:27)
[2019-01-01] MEDS ORDERED: NS 1,000 ML IV SCH ×2 (17:30→17:56)
[2019-01-01] MEDS ORDERED: DUONEB (A & A) INH PRN (17:33)
--- NOTE | 2019-01-01 17:35 | PROVIDER DOCUMENTATION ---
This chart was entered by Jolene Harrison Scribe, acting as scribe for Angel Figueroa MD. HPI-General Adult - General Chief Complaint: Abdominal Pain Stated Complaint: CANCER PT---CANT STAND Time Seen by Provider: 01/01/19 13:28 Source: patient, family Allergies/Adverse Reactions: Patient Allergies Allergy/AdvReac Type Severity Reaction Status Date / Time morphine Allergy Mild ITCHING Verified 01/01/19 12:42 aspirin AdvReac Intermediate PUD Verified 01/01/19 12:42 Home Medications: Home Medication List Medication Instructions Recorded Confirmed Last Taken Type Levothyroxine [Synthroid] 150 microgm PO DAILY 06/16/12 08/05/17 07/26/17 History SIMVAstatin [Zocor] 20 mg PO QHS 06/16/12 08/05/17 07/26/17 History Memantine [Namenda] 10 mg PO BID 11/09/15 08/05/17 07/26/17 History Tamsulosin [Flomax] 0.4 mg PO DAILY #30 capsule 11/10/15 08/05/17 07/26/17 Rx Warfarin Sodium [Coumadin] 6 mg PO DIRECTED 03/09/16 08/05/17 07/26/17 Hist ory Nitroglycerin Sl [Nitroglycerin] 0.4 mg SL Q5M PRN PRN #10 tablet 11/19/16 08/05/17 07/26/17 Rx Oxycodone/APAP 10 mg/325 mg 1 - 2 each PO Q4-6H PRN PRN #40 11/19/16 08/05/17 07/26/17 Rx [Percocet-10] tablet Alprazolam [Xanax] 1 mg PO PRN PRN 04/30/17 08/05/17 07/26/17 History Donepezil [Aricept] 5 mg PO DAILY 04/30/17 08/05/17 07/26/17 History Esomeprazole Magnesium [Nexium] 20 mg PO PRN PRN 04/30/17 08/05/17 Unknown History Albuterol Sulfate [Ventolin Hfa] 2 inh INH DAILY PRN PRN 07/26/17 08/05/17 Unknown History Finasteride 5 mg PO DAILY 07/26/17 08/05/17 07/26/17 History Aspirin [Aspirin EC] 81 mg PO DAILY #30 tablet. 07/30/17 08/05/17 Unknown Rx Furosemide [Lasix] 40 mg PO DAILY #30 tablet 07/30/17 08/05/17 Unknown Rx Metoprolol Succinate E.r. [Toprol 25 mg PO DAILY #30 tab 07/30/17 08/05/17 Unknown Rx Xl] Sitagliptin [Januvia] 50 mg PO DAILY #30 tab 07/30/17 08/05/17 Unknown Rx Valsartan [Diovan] 40 mg PO DAILY #30 tab 07/30/17 08/05/17 Unknown Rx - History of Present Illness -Gen Adult Nature of Presenting Problems: Patient is a 78 year old male who presents to the ED after being informed about having an abnormal CT. Family states patient had a renal CT done and was informed patient has pancreatitis and gallstones. Patient states pain all over. 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 Family reports patient has weakness and loss of appetite. Location of Pain/Injury: reports: generalized Pain Radiation: reports: no radiation Quality of Pain: reports: aching Severity: reports: mild Onset/Duration: reports: unsure Timing: reports: still present Context/Activities at Onset: reports: light activity Modifying Factors: improves with: nothing Associated Symptoms: reports: loss of appetite, weakness Similar Symptoms Previously?: Yes Recently seen or treated by another doctor?: Yes Review of Systems - Adult - REVIEW OF SYSTEMS - ADULT Constitutional: reports: no symptoms reported. denies: chills, fever, fatique Eyes: reports: no symptoms reported Ears, Nose, Mouth & Throat: reports: no symptoms reported Cardiovascular: reports: no symptoms reported Respiratory: reports: no symptoms reported Gastrointestinal: reports: see HPI, poor appetite. denies: diarrhea, nausea, vomiting Genitourinary: reports: no symptoms reported Musculoskeletal: reports: see HPI, muscle weakness, other (generalized pain). denies: back pain, neck pain Integumentary: reports: no symptoms reported Neurological: reports: no symptoms reported Psychiatric: reports: no symptoms reported Endocrine: reports: no symptoms reported Hematologic/Lymphatic: reports: no symptoms reported Allergic/Immunologic: reports: no symptoms reported All Other Systems: Reviewed and Negative Past History - Adult - PAST MEDICAL HISTORY-ADULT Review of Records: reports: Nursing Assessment Review, Medications Reviewed, Social history reviewed & non-contributory. Major Childhood Illnesses: reports: denies history Cardiovascular: reports: cardiac disease, A-Fib, aortic disease (AAA), CAD, CHF, HTN, hyperlipidemia Respiratory: reports: asthma, COPD, lung disease (asbestoisis), other (histoplasmosis) Gastrointestinal: reports: denies history Obstetrical/Gynecological: reports: denies history Genitourinary: reports: kidney stones, other (BPH) Musculoskeletal: reports: denies history Neurological: reports: Alzheimer's, dementia, TIA Endocrine/Immune: reports: thyroid disorder Other Conditions: reports: denies history - PRIOR SURGERIES/PROCEDURES Surgical/Procedure History: reports: CABG, hernia repair, joint replacement, other (cardiac ablation, AAA repair) - IMMUNIZATION STATUS Childhood Immunizations: See Nurse Assessment Flu Vaccine: See Nurse Assessment - FAMILY HISTORY Family History: reviewed, not pertinent - SOCIAL HISTORY Smoking: cigarettes (former) Substance Use: denies Living Situation: family Physical Exam-General - PHYSICAL EXAM-ADULT Initial Vital Signs Reviewed: Yes - CONSTITUTIONAL General Appearance: alert, no apparent distress. negative: lethargic, slow to respond - EYES Eyes: scleral icterus. negative: subconjunctival hemorrhage, sunken eyes - HEAD, EARS, NOSE, MOUTH & THROAT HENMT: other (lesion to left parietal scalp). negative: angioedema, hearing deficit - RESPIRATORY Respiratory: chest non-tender, lungs clear, normal breath sounds. negative: crackles, rhonchi - CARDIOVASCULAR Cardiovascular: normal peripheral pulses, regular rate, rhythm. negative: tachycardia, systolic murmur - GASTROINTESTINAL (ABDOMEN) Abdominal Exam: normal bowel sounds, non tender, soft. negative: guarding, rebound - MUSCULOSKELETAL Extremity: non-tender, normal inspection. negative: deformity, erythema - SKIN Integumentary: normal turgor, warm/dry, jaundice. negative: cyanosis, ecchymosis, erythema - NEUROLOGIC Neurologic: grossly normal. negative: aphasia, facial droop - PSYCHIATRIC Psych/Mental Status: normal mood/affect, oriented x 3. negative: paranoid Progress - PLAN OF CARE/RESULTS Progress/Plan/Lab Results: Vital Signs - 8 hr 01/01/19 12:32 Temperature 97.5 F L Pulse Rate 62 Respiratory Rate 19 Blood Pressure 130/68 O2 Sat by Pulse Oximetry 97 Laboratory Results - last 24 hr 01/01/19 12:54 WBC 8.61 RBC 4.43 L Hgb 14.4 Hct 41.9 L MCV 94.6 MCH 32.5 H MCHC 34.4 RDW Std Deviation 14.2 Plt Count 185 MPV 10.4 Immature Gran % (Auto) 0.3 Neut % (Auto) 86.2 H Lymph % (Auto) 7.3 L [place] % (Auto) 6.0 Eos % (Auto) 0.1 Baso % (Auto) 0.1 Immature Gran # (Auto) 0.03 Neut # (Auto) 7.41 H Lymph # (Auto) 0.63 L [place] # (Auto) 0.52 Eos # (Auto) 0.01 Baso # (Auto) 0.01 Orders Category Date Time Status Saline Loc DIRECTED Care 01/01/19 12:45 Active NPO Diet 01/01/19 12:45 Active AMYLASE [CHEM] Stat Lab 01/01/19 12:54 Received CBC WITH ELECTRONIC DIFF [HEME] Stat Lab 01/01/19 12:54 Completed COMPREHENSIVE METABOLIC PANEL [CHEM] Stat Lab 01/01/19 12:54 Received LIPASE [CHEM] Stat Lab 01/01/19 12:54 Received URINALYSIS W/POSS RFLX CULT [URINALYSIS] Stat Lab 01/01/19 12:45 Uncollected Result Diagrams: 01/01/19 12:54 01/01/19 12:54 - ULTRASOUND (By Radiology) 1 US Study: Gallbladder Impression: See EMR Report (US GB < RUQ (LIMITED) - 01/01/2019 INDICATION: ruq pain TECHNIQUE: COMPARISON: CT from 12/31/2018 FINDINGS: The liver is normal. There are several shadowing stones in the gallbladder. The gallbladder is very distended. The gallbladder wall measures about 3 mm. Common bile duct measures 5 mm. The pancreas is obscured. The right kidney is normal. Aorta, IVC, and main portal vein are patent. IMPRESSION: No change from prior. Very distended gallbladder with several gallstones inside. Early cholecystitis cannot be excluded. Electronically signed by Shar Monzon 01/01/2019 3:24 PM 01/01/19 1524 Interpreting Physician: Shar Monzon MD Dictated Date/Time: 01/01/19 9860 cc: Angel Figueroa MD; Harman Voss MD) - CONSULTS/PCP/HOSPITALIST Notification #1 *Consult/PCP/Hospitalist*: Dr. Brown Time Discussed: 16:06 Reason/Comments: Dr. Figueroa consulted with Dr. Brown about patient. Consult Disposition: other (admit to hospitalist) #2 Consult: CARLIN Sherman for Hospitalist Time Discussed: 16:07 Reason/Comments: Dr. Figueroa consulted with Whit about patient. Consult Disposition: Will see in ED, Admit Departure - Departure Date of Disposition Decision: 01/01/19 Time of Disposition Decision: 16:08 DIAGNOSIS: Pancreatitis, Cholecystitis Disposition: ADMITTED INPATIENT 09 Certified Medical Emergency: Emergent Condition: Stable Referrals and Follow-Ups: Harman Voss MD [Primary Care Provider] - - Critical Care Note This patient required my direct & personal management of CC.: No Attestation - Physician/ NICHO Attestation The physician spent face to face time with patient:: Yes Advanced Practice Provider documentation review:: Supervising physician onsite and consulted in the evaluation and care of this patient. The physician did have a face to face encounter with the patient. This chart was documented by the indicated scribe, (Jolene Harrison Scribe) and accurately reflects the services I performed and decisions made by me, Angel Figueroa MD, as attested by the provider's signature.
--- NOTE | 2019-01-01 19:50 | HISTORY AND PHYSICAL ---
CHIEF COMPLAINT: Pancreatitis, gallstones. HISTORY OF PRESENT ILLNESS: This is a 78-year-old gentleman with a history of dementia, paroxysmal atrial fib, congestive heart failure, COPD, and prior kidney stones. He presented to the emergency room after being called by Dr. Peña and had been instructed to come to the emergency room. The patient had a renal CT performed on the for hematuria and abdominal pain. He was found to have nonobstructing 1 mm stone in the kidney as well as pancreatitis and numerous gallstones with a somewhat distended gallbladder and constipation. In the emergency room an ultrasound of the right upper quadrant was performed which revealed a very distended gallbladder with several gallstones inside. Early cholecystitis cannot be excluded. He was given saline as well as Zosyn and pain medication in the emergency room and he is being admitted for further evaluation and treatment. PAST MEDICAL HISTORY: 1. Paroxysmal atrial fibrillation. 2. Congestive heart failure with an ejection fraction of 20% in July 2017 with reduced systolic function and severe global hypokinesis. 3. Chronic obstructive pulmonary disease. 4. Hypertension. 5. Benign prostatic hypertrophy. 6. Hypothyroid. 7. 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 Sandhya Rivas. 8. Coronary artery bypass graft. 9. AAA repair. ALLERGIES: Morphine, which makes him swell and itch. Aspirin which causes ulcers. REVIEW OF SYSTEMS: Discussed with patient and . The patient is unable to answer these questions due to his dementia. The states that the only thing that he has complained about is he has rubbed his abdomen and moaned. She denied any dizziness, syncope, any complaints of chest pain, any nausea, vomiting, diarrhea, constipation, black or bloody vomitus or stools, any dysuria, frequency or urgency. PHYSICAL EXAMINATION: GENERAL: This is a very pleasant 78-year-old gentleman who is lying on the stretcher in the emergency room in no distress. VITAL SIGNS: Blood pressure 106/57 with a heart rate of 65, respirations are 19, temperature 80 as 97.5 with O2 saturation 95% to 97% on room air. EYES: Pupils are equal, round, react to light. EOMs are intact. Sclerae are icteric. HEENT: Head is normocephalic, atraumatic. Mucous membranes are moist. NECK: Supple. Trachea midline. CARDIOVASCULAR: Regular rate and rhythm. S1 and S2 are appreciated. PULMONARY: Breath sounds are clear with no increased work of breathing noted. Chest rises and falls symmetrically with respiration. GASTROINTESTINAL: Abdomen is nontender, soft with bowel sounds in all 4 quadrants. SKIN: Warm and dry. He is jaundiced. He does have a scabbed area to his left side of his head as well as swelling behind his left ear. Skin erythematous secondary to radiation treatment. NEUROLOGIC: He is alert he is awake. He is oriented to his and his daughter. LABORATORY DATA: Labs WBC is 8.6 with hemoglobin 14.4, hematocrit 41.9, and platelets of 185,000. INR is 2.47 with a PT of 28.6. Sodium 133, potassium 4.8, BUN 17, creatinine 1.1 with a glucose of 203. Bilirubin is 10.1 with AST 93, ALT 76, and alkaline phosphatase 502. Amylase is 1254, lipase 1867. Abdominal ultrasound revealed very distended gallbladder with several gallstones. Renal CT revealed constipation, numerous gallstones, somewhat distended gallbladder, pancreatitis. ASSESSMENT AND PLAN: 1. Pancreatitis. The patient will remain NPO. We will continue with IV hydration, pain and nausea medicine. We will give Zosyn. 2. Cholecystitis. As stated above, we will consult Dr. Angel Brown in General Surgery. 3. Congestive heart failure. 4. Chronic systolic heart failure with an EF of 20% in July 2016. As surgery has been discussed, we will consult Cardiology for their opinion and clearance. 5. Chronic anticoagulation. As surgery has been discussed, we will give vitamin K 10 mg subcutaneous now. We will have daily INRs. 6. Paroxysmal atrial fibrillation, status post ablation. 7. Hypertension. 8. Chronic obstructive pulmonary disease. 9. Hypothyroid. 10. Dementia. 11. History of coronary artery bypass graft and abdominal aneurysm repair. 12. Squamous cell carcinoma. PLAN: 1. The patient will be admitted to CICU for close monitoring. We will continue with gentle hydration and give Zosyn. We will give DuoNeb q.4 hours p.r.n. wheezing. He will be placed on telemetry. He will continue to be NPO. We will repeat amylase, lipase, CBC, CMP and TSH in the morning with daily INRs. For pain, we will use Demerol 12.5 q.4 hours. The patient is allergic to morphine and he did start itching with Dilaudid. 2. Further treatments pending hospital course. Patient seen and examined by me face to face, all the laboratory, vitals signs and images were reviewed, patient presented with abdominal pain, jaundice, laboratory showed pancreatitis and elevated LFTs, images showed the possibility of cholecystitis, he has a history of atrial fibrillation on chronic anticoagulation with warfarin, also CHF with a really low ejection fraction, skin cancer, the plan will be to give him vitamin K to decrease the INR for possible surgery, new echocardiogram, cardiology consult, surgery consult, gentle IV fluids, antibiotics, laboratory daily, his abdomen is not that tender, apparently he feels better, I will keep him NPO today but if surgery is not going to be during this weekend he will be on a liquid diet to se if he tolerates that, I agree with the rest of the CONTROL ELECTRICIAN's assessment and plan, Ramy Dorsey MD Dictated by CARLIN Vasques for Ramy Linares MD cc: CARLIN Vasques MD [facility]
[2019-01-01] MEDS: ZOSYN 3.375 GM in NS 50 ML IV SCH ×2 (19:56→21:58)
--- NOTE | 2019-01-01 20:52 | GENERAL SURGERY CONSULTATION ---
DATE: 01/01/2019 REASON FOR CONSULTATION: Acute cholecystitis and pancreatitis. HISTORY OF PRESENT ILLNESS: This is a 78-year-old male with basal cell carcinoma of the left scalp. He also appears to have squamous cell carcinoma of the salivary glands on the left side. He is undergoing radiation treatment. He has baseline dementia. His noticed his skin to be turning yellow a couple of days ago, and he has been having some abdominal discomfort as he has been moaning. He has had some nausea. No fever or chills, diarrhea or constipation noted. Dr. Peña has been following the patient as well and ordered a CT scan to evaluate the renal and urinary system. This CT scan showed pancreatitis and multiple gallstones and possible early acute cholecystitis. REVIEW OF SYSTEMS: Positive for weakness and loss of appetite. Otherwise, 10 systems reviewed and negative except as noted above. PAST MEDICAL HISTORY: As described above in HPI. Also, coronary artery disease, history of AAA repair, asthma, diabetes, hyperlipidemia, hypothyroidism and atrial fibrillation. HOME MEDICATIONS: Synthroid, Zocor, Namenda, Flomax, Coumadin, nitroglycerin, Xanax, Aricept, Nexium, Ventolin HFA, aspirin, Lasix, Toprol-XL, Januvia, Diovan. PAST SURGICAL HISTORY: 1. Coronary artery bypass grafting. 2. AAA repair. 3. Inguinal hernia repair. 4. Joint replacement. FAMILY HISTORY: Reviewed and non-pertinent. SOCIAL HISTORY: Does is a former smoker, none current. No alcohol use. ALLERGIES: Morphine and aspirin. PHYSICAL EXAMINATION: Vital Signs: Temperature 97.5 degrees, pulse 65, respirations 19, blood pressure 106/57, O2 saturation 97%. General: Elderly sickly male in no acute distress. He looks his stated age. HEENT: There is an ulcerated raised lesion of the left parietal scalp consistent with basal cell carcinoma. His extraocular muscles appear to be intact. Pupils are equal and round. Moist mucous membranes. Neck: Somewhat firm on the left side. There is some swelling around the salivary glands and parotid gland on the left side. Cardiovascular: Regular rate and rhythm. Respiratory: Bilateral breath sounds. No work of breathing. Gastrointestinal: Soft mildly tender in the epigastrium and right upper quadrant. No rebound or guarding. No organomegaly or mass. No hernias. He has well-healed ventral incision in the midline. Extremities: No clubbing, cyanosis, or edema. Skin: He has jaundice throughout. LABORATORY: White blood cell count 8, hemoglobin 14, hematocrit 41.9, platelet count 185,000. INR 2.5. Electrolytes reviewed and notable for bilirubin of 10, AST 93, ALT 76, alkaline phosphatase 502. Amylase 1254, lipase 1867. IMAGING: A CT scan of the abdomen and pelvis as described above in HPI is noted. An ultrasound of the abdomen today shows a very distended gallbladder with several gallstones, and the gallbladder wall measures 3 mm. The common bile duct measures 5 mm. ASSESSMENT AND PLAN: A 78-year-old male with acute cholecystitis, pancreatitis, and jaundice. He has a medical history significant for skin cancer and salivary gland cancer now undergoing radiation. He is on Coumadin for atrial fibrillation. So the plan will be to stop the coumadin and give him some vitamin K. He will be started on Zosyn for the cholecystitis. We will observe him for a day or 2 and gently hydrate him. He does not appear to be in severe pancreatitis or end- organ failure. In the next few days, we will set up a laparoscopic cholecystectomy with cholangiogram. I have discussed this with his family, including the risks, benefits, including bleeding, infection, injury to surrounding organs such as the intestines or bile duct, perioperative cardiopulmonary complications and other imponderables. They understand and agree to proceed. cc: Angel Brown MD MTD
[2019-01-02] MEDS: ZOSYN 3.375 GM in NS 50 ML IV SCH ×4 (02:09→21:27)
[2019-01-02 06:08] LABS: BASO# 0.01 X1000 (0.0-0.2); BASO% 0.1 % (0.0-0.8); EOS# 0.05 X1000 (0.0-0.7); EOS% 0.7 % (0.0-10.0); HEMATOCRIT 37.8 % (42.0-52.0); HEMOGLOBIN 12.9 g/dL (14.0-18.0); LYMPH# 0.87 X1000 (1.2-3.4); LYMPH% 12.8 % (20.5-51.1); MCH 32.7 PG (27-31); MCHC 34.1 g/dL (33-37); MCV 95.9 FL (81-99); MONO% 5.9 % (1.7-9.3); MPV 10.1 FL (7.4-10.4); NEUT# 5.48 X1000 (1.4-6.5); NEUT% 80.5 % (42.2-75.2); PLT 157 X1000 (130-400); RBC 3.94 XMIL (4.7-6.1); RDW 14.2 % (11.5-14.5); WBC 6.81 X1000 (4.8-10.8)
[2019-01-02 06:15] LABS: INR 2.23; PROTIME 26.3 Seconds (11.0-16.0)
[2019-01-02 06:34] LABS: AMYLASE 226 U/L (20-200); LIPASE 221 U/L (13-60)
[2019-01-02 06:53] LABS: AGAP 13; ALB/GLOB RATIO 0.8; ALKALINE PHOSPHATASE 369 U/L (32-122); BUN 14 mg/dL (8-22); CALCIUM 8.1 mg/dL (8.8-10.2); CHLORIDE 102 mmol/L (98-107); COSMO 279; CREATININE 0.9 mg/dL (0.7-1.2); ESTIMATED GFR > 60; GLUCOSE 142 mg/dL (70-104); GOT 58 U/L (10-34); GPT 51 U/L (10-44); POTASSIUM 4.5 mmol/L (3.5-5.1); SODIUM 138 mmol/L (136-145); TCO2 23 mmol/L (25-35); TOTAL BILIRUBIN 4.86 mg/dL (0.20-1.00); TOTAL PROTEIN 6.6 g/dL (6.3-8.3)
[2019-01-02] MEDS ORDERED: VITAMIN K PO ONE (08:02)
--- NOTE | 2019-01-02 08:52 | PROGRESS NOTE ---
DATE: 01/02/2019 SUBJECTIVE: The patient is not having significant abdominal pain, just some discomfort at the level of the epigastric area and right upper quadrant. No signs of peritoneal irritation. This patient is hungry, so I will start this patient on an liquid diet, and also I will give him an extra dose of vitamin K p.o. because his INR is still therapeutic. He will probably have a cholecystectomy done next Friday. Otherwise, he seems to be stable. LFTs are trending down as well as amylase and lipase. I will decrease the IV fluids since this patient has a significant history of congestive heart failure with a really low ejection fraction, and we will repeat the echocardiogram. OBJECTIVE: Vital Signs: Temperature 98.2 degrees, pulse 84, respiratory rate 16, blood pressure 147/84, oxygen saturation 98 on room air. HEENT: Head normocephalic, no trauma. PERRLA. Icteric sclerae. He has a lesion which is chronic at the level of the left forehead and parietal area, extending down to the temporal area and behind the left ear. Neck: Supple. No JVD. Central trachea. Chest: Clear to auscultation. No wheezing. No rales. Abdomen: Soft. Some tenderness to palpation at the level of the epigastric area and right upper quadrant. No signs of peritoneal irritation. Positive bowel sounds. Extremities: No edema, no clubbing, no cyanosis. Neurological: The patient is alert and oriented x2. He is not oriented to time. No focal deficits. He does have dementia. LABORATORY: WBC 6.8, hemoglobin 12.9, hematocrit 37.8, and platelets 157,000. Sodium 138, potassium 4.5, chloride 102, bicarbonate 23, BUN 14, creatinine 0.9, glucose 142, calcium 8.1, AST 58, ALT 61, alkaline phosphatase 369, amylase 226, lipase 221, albumin 3. ASSESSMENT AND PLAN: 1. Acute cholecystitis. The patient has been evaluated by Surgery Department. He is not complaining of significant pain today and he has been hungry, so I will start this patient on a clear liquid diet to see how he does. Liver function tests are trending down as well as lipase and amylase. 2. Pancreatitis. Continue with gentle intravenous fluids which actually I will decrease a little bit more because of his history of severe congestive heart failure. He already received a couple boluses of normal saline in the emergency department, and also he was kept on normal saline during the night. At home, he uses Lasix, so I will start him on a diet and I will decrease the fluids even more. 3. Jaundice, likely secondary to cholecystitis. We will monitor. 4. Congestive heart failure, systolic, with a low ejection fraction around 20% in 2016. We will repeat an echocardiogram. He seems to be stable, but the pain did not resolve. We will consult Cardiology for clearance. 5. Paroxysmal atrial fibrillation, on chronic anticoagulation with warfarin. He received a dose of vitamin K yesterday subcutaneously, but today I will give him an extra dose of p.o. vitamin K because his INR is still therapeutic. 6. Hypertension, stable. 7. Chronic obstructive pulmonary disease, not in exacerbation. 8. Hypothyroidism. Continue with home medications. 9. Dementia. I will put this patient back on his home medications. 10. History of coronary artery bypass graft and abdominal aneurysm repair. Aware. 11. I believe he has a combined skin lesion, basal cell carcinoma and squamous cell carcinoma, at the level of the forehead and left parietal area. It looks like he recently received radiation for that. 12. The patient has been evaluated by Surgery Department. We will continue to monitor this patient closely. Probably, he will have a laparoscopic cholecystectomy done next Friday. cc: Ramy Linares MD
[2019-01-02] MEDS: ARICEPT PO SCH (09:27)
[2019-01-02] MEDS: SYNTHROID PO SCH (09:27)
[2019-01-02] MEDS: NAMENDA PO SCH ×2 (09:27→21:27)
[2019-01-02] MEDS: NS 1,000 ML IV SCH (09:28)
--- NOTE | 2019-01-02 13:27 | GENERAL SURGERY PROGRESS NOTE ---
DATE: 01/02/2019 SUBJECTIVE: The patient does not really answer many questions this morning. His family member is there and did not have much information. There are no acute events per the nursing staff. He denies any significant abdominal pain at this time. OBJECTIVE: Vital Signs: T-max 99.8, T-current 98.2. Vital signs are stable. General: He is somnolent, but arousable. He does follow a few commands. Cardiovascular: Regular rate and rhythm. Respiratory: Bilateral breath sounds. No work of breathing. Gastrointestinal: Soft. Minimal tenderness. Nondistended. He looks less jaundiced today. LABORATORY: CBC reviewed and unremarkable. AST 50, ALT 51, alkaline phosphatase 369, total bilirubin 4.8. Amylase 226, lipase 221. All of these are trending down from yesterday. INR 2.2. ASSESSMENT AND PLAN: A 58-year-old male with acute cholecystitis and pancreatitis, which appear to be improving. We will continue the Zosyn and allow him to have clear liquids for now. I had tentatively been planning a laparoscopic cholecystectomy this admission; however, it has now been made known to me by the nurse practitioner that he has severe congestive heart failure, so we are going to obtain an echocardiogram and Cardiology consult before we proceed to general anesthesia and cholecystectomy. If he is deemed to be a high risk, then I think we would need to treat this with antibiotics alone and check a HIDA scan. If the HIDA scan shows cystic duct obstruction, then I would pursue drainage of the gallbladder and continued antibiotics and avoid cholecystectomy if possible. I agree with continuing the holding of Coumadin and giving him vitamin K to bring the INR down at this time. cc: Angel Brown MD
--- NOTE | 2019-01-02 14:43 | ECHO REPORT ---
ORDER DATE: 01/01/2019 ECHOCARDIOGRAPHIC MEASUREMENTS: 1. Interventricular septum 1.4 2. Left ventricular posterior wall 1.0. 3. Diastolic diameter 5.7. 4. Left atrium 4.1. 5. Aorta 3.5. SUMMARY: 1. There is left atrial enlargement. 2. Aortic valve leaflets are trileaflet. 3. Pulmonic valve was normal. 4. Mitral valve was normal. 5. Tricuspid valve was normal. 6. There is mild tricuspid regurgitation. 7. Peak velocity across the tricuspid valve was 2.8 m/sec. 8. Pulmonary systolic pressure of 41 mmHg. 9. Peak velocity across the aortic valve less than 2 m/sec. 10. By Doppler studies there is no aortic stenosis or regurgitation. 11. There is mild mitral annular calcification. 12. Left ventricle is mildly dilated with severely reduced systolic function. 13. Estimated ejection fraction of 25%. There is severe global hypokinesis. 14. There is diastolic dysfunction. 15. There is no pericardial effusion or obvious intracardiac mass or thrombus seen. cc: MD Deborah Maldonado CRNP
[2019-01-03] MEDS: NS 1,000 ML IV SCH ×2 (02:55→09:09)
[2019-01-03] MEDS: ZOSYN 3.375 GM in NS 50 ML IV SCH ×4 (02:55→20:47)
[2019-01-03 05:52] LABS: BASO# 0.02 X1000 (0.0-0.2); BASO% 0.3 % (0.0-0.8); EOS# 0.05 X1000 (0.0-0.7); EOS% 0.8 % (0.0-10.0); HEMATOCRIT 38.4 % (42.0-52.0); HEMOGLOBIN 13.1 g/dL (14.0-18.0); IMM GRAN# 0.02 X1000 (0.0-0.04); IMM GRAN% 0.3 % (0.0-0.5); LYMPH# 1.29 X1000 (1.2-3.4); LYMPH% 19.7 % (20.5-51.1); MCHC 34.1 g/dL (33-37); MCV 96.7 FL (81-99); MONO% 6.1 % (1.7-9.3); MPV 10.4 FL (7.4-10.4); NEUT# 4.76 X1000 (1.4-6.5); NEUT% 72.8 % (42.2-75.2); PLT 193 X1000 (130-400); RBC 3.97 XMIL (4.7-6.1); RDW 14.3 % (11.5-14.5); WBC 6.54 X1000 (4.8-10.8)
[2019-01-03 06:03] LABS: INR 0.87; PROTIME 12.5 Seconds (11.0-16.0)
[2019-01-03 06:17] LABS: AGAP 12; ALB/GLOB RATIO 0.8; ALBUMIN 3.1 g/dL (3.5-5.0); ALKALINE PHOSPHATASE 319 U/L (32-122); AMYLASE 89 U/L (20-200); BUN 15 mg/dL (8-22); CALCIUM 8.5 mg/dL (8.8-10.2); CHLORIDE 104 mmol/L (98-107); COSMO 280; CREATININE 0.9 mg/dL (0.7-1.2); ESTIMATED GFR > 60; GLUCOSE 136 mg/dL (70-104); GOT 49 U/L (10-34); GPT 44 U/L (10-44); LIPASE 161 U/L (13-60); SODIUM 139 mmol/L (136-145); TCO2 23 mmol/L (25-35); TOTAL BILIRUBIN 3.52 mg/dL (0.20-1.00); TOTAL PROTEIN 6.8 g/dL (6.3-8.3)
--- NOTE | 2019-01-03 08:24 | PROGRESS NOTE ---
DATE: 01/03/2019 SUBJECTIVE: This patient is not having significant abdominal pain today. His INR now is not therapeutic. His ejection fraction is around 25% per echocardiogram so we have requested an evaluation by the cardiology department. He seems to be doing okay. He has been tolerating a little bit of the liquid diet. No big changes compared with yesterday. The lab work seems to be better. LFTs are improving as well as the pancreatic enzymes. OBJECTIVE: Vital Signs: Temperature 98.6 degrees, pulse 80, respiratory rate 21, blood pressure 121/74, oxygen saturation 96 on room air. HEENT: Head normocephalic. No trauma. PERRLA. Icteric sclerae. He has a lesion which is chronic at the level of the left forehead and parietal area extending down to the temporal area behind the left ear. Neck: Supple. No JVD. Central trachea. Chest: Clear to auscultation. No wheezing. No rales. Abdomen: Soft. Some tenderness to palpation at the level of the epigastric area and right upper quadrant. No signs of peritoneal irritation. Positive bowel sounds. Extremities: No edema, no clubbing, no cyanosis. Neurological Examination: The patient is alert and oriented x2. Not oriented to time. No focal deficits. He does have dementia. Laboratory: WBCs 6.5, hemoglobin 13.1, hematocrit 38.4, platelets 193,000. Sodium 139, potassium 4, chloride 104, bicarbonate 23, BUN 15, creatinine 0.9, glucose 136, calcium 8.5. AST 49, ALT 44, alkaline phosphatase 319, amylase 89, lipase 161. ASSESSMENT AND PLAN: 1. Acute cholecystitis. Surgery department following this patient closely. We started this patient on a liquid diet. Liver function tests as well as pancreatic enzymes are trending down. We will continue to monitor. I have requested an evaluation by the cardiology department. 2. Pancreatitis. Continue with gentle intravenous fluids and his diet. He is not complaining of shortness of breath or chest pain at this moment. Echocardiogram showed an ejection fraction of 25% and also he had some pulmonary hypertension Cardiology department has been consulted for a preop evaluation. 3. Jaundice, likely secondary to cholecystitis. We will monitor. 4. Congestive heart failure, systolic, with ejection fraction of 25%. He seems to be stable. 5. Paroxysmal atrial fibrillation, on chronic anticoagulation with warfarin which now is subtherapeutic due to treatment with vitamin K for possible surgery tomorrow. 6. Hypertension, stable. 7. Chronic obstructive pulmonary disease, not in exacerbation. 8. Hypothyroidism. Continue with home medication. 9. Dementia. Continue with home medication. 10. History of coronary artery bypass graft and abdominal aneurysm repair. Aware. 11. Skin cancer. He has been getting treatment recently, especially radiation. He will continue with his treatment once he is discharged from this hospital. cc: Ramy Linares MD
--- NOTE | 2019-01-03 09:07 | GENERAL SURGERY PROGRESS NOTE ---
DATE: 01/03/2019 SUBJECTIVE: The patient complains of some abdominal discomfort and some nausea. OBJECTIVE: Vital Signs: He is afebrile. Vital signs are stable. General: He is awake and alert. No acute distress. Cardiovascular: Regular rate and rhythm. Respiratory: Bilateral equal breath sounds. No work of breathing. Gastrointestinal: Soft, nondistended. Mildly tender. No rebound or guarding. He does have a few bowel sounds appreciated. Skin: Continued jaundice, but less prominent. LABORATORY: White blood cell count 6.5, hemoglobin 13, hematocrit 38, platelet count 193,000. INR 0.87. Basic metabolic profile reviewed and unremarkable. AST 49, ALT 44, alkaline phosphatase 319, total bilirubin 3.5, lipase 161. Echocardiogram results were reviewed and notable for left atrial enlargement, severely reduced systolic function at 25%, severe global hypokinesis. ASSESSMENT AND PLAN: A 78-year-old male with gallstone pancreatitis and probable acute cholecystitis. He has systolic congestive heart failure and multiple other medical problems. We will continue treating with Zosyn and follow the liver function tests tomorrow. I am going to order a HIDA scan to check for cystic duct obstruction and we are awaiting a Cardiology evaluation. If he is deemed high risk for cholecystectomy, then I would pursue a cholecystostomy tube, especially if he has cystic duct obstruction. cc: Angel Brown MD
[2019-01-03] MEDS: SYNTHROID PO SCH (09:09)
[2019-01-03] MEDS: NAMENDA PO SCH ×2 (09:09→20:47)
[2019-01-03] MEDS: ARICEPT PO SCH (09:09)
[2019-01-03] MEDS ORDERED: VENTOLIN HFA INH PRN (11:20)
[2019-01-03] MEDS: ASPIRIN EC PO SCH (11:35)
[2019-01-03] MEDS: TOPROL XL PO SCH (11:35)
[2019-01-03] MEDS: LASIX IV SCH (11:39)
--- NOTE | 2019-01-03 11:55 | CARDIOLOGY CONSULTATION ---
DATE: 01/03/2019 REASON FOR CONSULTATION: Cardiology was consulted for a preoperative risk assessment for the patient who has gallstone pancreatitis. HISTORY OF PRESENT ILLNESS: A 78-year-old, gentleman with a history of dementia, atrial fibrillation, congestive heart failure, COPD, coronary artery bypass grafting. He came to the emergency room with abdominal discomfort and he was found to have a 1 cm stone in the kidney, as well as pancreatitis, with numerous gallstones. Antibiotics were started. Cardiology was consulted for risk assessment. The patient does not complain of chest pain. The patient's son and were present. He has had significant dementia. He does not complain of shortness of breath at the present time. Complains of weakness. REVIEW OF SYSTEMS: A 14 point review of systems was done. GI System: As above. Cardiovascular System: No chest pain. Respiratory System: There is no history of cough, expectoration, hemoptysis. There is no history of fevers or chills. Endocrine System: Stable. PAST MEDICAL HISTORY: 1. Atrial fibrillation. 2. History of congestive heart failure. Last ejection fraction of 20%. Severe global hypokinesis. 3. COPD. 4. Coronary artery disease, status post coronary artery bypass grafting. 5. Status post AAA repair. 6. Hypothyroidism. 7. Hypertension. 8. Basal cell gland tumor removed and he is undergoing radiation therapy. ALLERGIES: He is allergic to morphine. HOME MEDICATIONS: Include simvastatin 20, levothyroxine 150, aspirin 81 mg a day, valsartan 40, Januvia 50, Toprol 25, Lasix 40 mg, finasteride 5, nebulizers as needed, Nexium. PHYSICAL EXAMINATION: Blood pressure 126/68. First and second heart sounds were heard. There is a faint systolic murmur. Respiratory System: Normal air entry. There were no crepitations or rhonchi. Abdomen: Soft. There was tenderness, right hypochondrium. Central Nervous System: Was answering questions. A detailed central nervous system examination was not performed. The patient is moving all 4 extremities. There is trace edema noted. ASSESSMENT AND PLAN: Mr. Dominique Meléndez is a 78-year-old, gentleman with a history of atrial fibrillation, coronary artery disease, coronary artery bypass grafting, congestive heart failure, severe left ventricular dysfunction, diabetes. He is admitted with abdominal discomfort. Patient is admitted with gallstone pancreatitis. From a cardiac standpoint, he is at a high risk. However, currently, he is euvolemic. I will restart his home medications with aspirin, beta blockers, and valsartan. He was taking Lasix 40 mg at home. I will put him on Lasix 40 mg intravenously. We will get a chest x-ray. Would recommend proceeding with surgery as planned. Thank you for the consult. We will follow hospital course. cc: Chapin Parham MD
--- NOTE | 2019-01-03 13:21 | Diag Imaging Result Doc PS360 ---
EXAM: CHEST-1 VIEW INDICATION: chf TECHNIQUE: One view COMPARISON: 08/08/2017 FINDINGS: The central vasculature appears mildly prominent suggesting mild pulmonary venous congestion. The lungs are grossly clear, otherwise. There is no discrete pleural fluid collection or pneumothorax. There are stable CABG changes. The cardiac silhouette is grossly unremarkable, otherwise. IMPRESSION: Slightly prominent central vasculature suggesting possible mild pulmonary venous congestion. Electronically signed by Dexter Johnson 01/03/2019 1:19 PM
[2019-01-03] MEDS ORDERED: CALMOSEPTINE OINTMENT TOP PRN (20:34)
[2019-01-04] MEDS: ZOSYN 3.375 GM in NS 50 ML IV SCH ×3 (02:43→18:25)
[2019-01-04 05:03] LABS: BASO# 0.05 X1000 (0.0-0.2); BASO% 0.9 % (0.0-0.8); EOS# 0.07 X1000 (0.0-0.7); EOS% 1.3 % (0.0-10.0); HEMATOCRIT 39.4 % (42.0-52.0); HEMOGLOBIN 13.7 g/dL (14.0-18.0); LYMPH# 1.37 X1000 (1.2-3.4); LYMPH% 24.7 % (20.5-51.1); MCH 33.1 PG (27-31); MCHC 34.8 g/dL (33-37); MCV 95.2 FL (81-99); MONO# 0.38 X1000 (0.11-0.59); MONO% 6.9 % (1.7-9.3); NEUT# 3.67 X1000 (1.4-6.5); NEUT% 66.2 % (42.2-75.2); PLT 230 X1000 (130-400); RBC 4.14 XMIL (4.7-6.1); WBC 5.54 X1000 (4.8-10.8)
[2019-01-04 05:15] LABS: ALBUMIN 3.5 g/dL (3.5-5.0); DIRECT BILIRUBIN 1.6 mg/dL (0.00-0.20); TOTAL BILIRUBIN 2.76 mg/dL (0.20-1.00); TOTAL PROTEIN 7.1 g/dL (6.3-8.3)
[2019-01-04 05:25] LABS: AGAP 12; ALBUMIN 3.4 g/dL (3.5-5.0); ALKALINE PHOSPHATASE 288 U/L (32-122); BUN 18 mg/dL (8-22); CALCIUM 8.6 mg/dL (8.8-10.2); CHLORIDE 101 mmol/L (98-107); COSMO 281; ESTIMATED GFR > 60; GLUCOSE 152 mg/dL (70-104); GOT 65 U/L (10-34); GPT 51 U/L (10-44); LIPASE 175 U/L (13-60); POTASSIUM 3.9 mmol/L (3.5-5.1); SODIUM 138 mmol/L (136-145); TCO2 25 mmol/L (25-35); TOTAL PROTEIN 6.7 g/dL (6.3-8.3)
[2019-01-04 05:46] LABS: INR 0.89; PROTIME 12.8 Seconds (11.0-16.0)
[2019-01-04 06:05] LABS: EOS 1 % (1-10); LYMPHS 25 % (21-51); MONO 5 % (1-9); SEGS 69 % (42-75)
[2019-01-04] MEDS: NS 1,000 ML IV SCH (08:37)
--- NOTE | 2019-01-04 09:10 | PROGRESS NOTE ---
DATE: 01/04/2019 SUBJECTIVE: No big changes compared with yesterday. He is still not complaining of significant abdominal pain just a little bit at the level of the epigastric area, and right upper quadrant. Cardiology Department already evaluated this patient. He will have a HIDA scan today to decide if this patient will go for surgery or not, pending surgery recommendations. OBJECTIVE: Vital Signs: Temperature 98.1 degrees, pulse 72, respiratory rate 15, blood pressure 140/55, and oxygen saturation 97% on room air. HEENT: Head normocephalic. No trauma. PERRLA. Icteric sclerae. He has a lesion on his forehead, left side, and parietal area extending down to the temporal and behind the left ear, which is chronic. Neck: Supple. No JVD. Central trachea. Chest: Clear to auscultation. No wheezing. No rales. Abdomen: Soft. There is some tenderness to palpation at the level of the epigastric and right upper quadrant. No signs of peritoneal irritation. Positive bowel sounds. Extremities: No edema. No clubbing. No cyanosis. Neurological: The patient is alert and oriented x2. Not oriented to time. No focal deficits. He does have dementia. LABORATORY: WBC 5.5, hemoglobin 13.7, hematocrit 39.4, and platelets 230,000. Sodium 138, potassium 3.9, chloride 101, bicarbonate 25, BUN 18, creatinine 1, glucose 152, calcium 8.6. Total bilirubin 2.9, AST 65, ALT 51, alkaline phosphatase 288, albumin 3.4, and lipase 175. ASSESSMENT AND PLAN: 1. Acute cholecystitis, Surgery Department following this patient. It has been requested that a HIDA scan. We will wait for the results to evaluate the possibility of surgery on this patient. 2. Pancreatitis. This is getting better. We will continue with a little bit of fluids and his diet. He is not complaining of pain or shortness of breath. 3. History of congestive heart failure with ejection fraction of 25%. Cardiology Department already evaluated this patient. 4. Jaundice, likely secondary to cholecystitis. Will monitor. 5. Paroxysmal atrial fibrillation on chronic anticoagulation with warfarin which now is subtherapeutic due to treatment with vitamin K for possible surgery in the near future. 6. Hypertension, stable. 7. COPD not in exacerbation. 8. Hypothyroidism. Continue with home medication. 9. Dementia. Continue home medications and stable. 10. History of CABG and abdominal aneurysm repair. Aware. 11. Skin cancer. He has been getting treatment recently, especially radiation. He will continue with his cancer treatment once he is discharged from this hospital. cc: Ramy Linares MD
--- NOTE | 2019-01-04 10:28 | Diag Imaging Result Doc PS360 ---
HIDA SCAN W/O EJECT. FRACTION - 01/04/2019 INDICATION: cholecystitis TECHNIQUE: 5.4 mCi of Choletec was administered COMPARISON: Ultrasound from 01/01/2019 FINDINGS: There is no definite excretion of tracer into the gallbladder. There is normal uptake and clearance by the liver. There is good excretion into the duodenum and bowel. IMPRESSION: Probable acute cholecystitis. This report was discussed with RT Kelley on 01/04/2019 at 10:25 AM and was readback. Electronically signed by Shar Monzon 01/04/2019 10:25 AM
[2019-01-04] MEDS: NAMENDA PO SCH ×2 (12:42→19:54)
[2019-01-04] MEDS: ASPIRIN EC PO SCH (12:42)
[2019-01-04] MEDS: ARICEPT PO SCH (12:42)
[2019-01-04] MEDS: TOPROL XL PO SCH (12:42)
[2019-01-04] MEDS: LASIX IV SCH (12:42)
[2019-01-04] MEDS: PERCOCET-10 PO PRN ×2 (12:43→19:53)
[2019-01-04] MEDS: DIOVAN PO SCH (12:43)
[2019-01-04] MEDS: SYNTHROID PO SCH (12:43)
--- NOTE | 2019-01-04 12:53 | GENERAL SURGERY PROGRESS NOTE ---
DATE: 01/04/2019 SUBJECTIVE: The patient continues to have some abdominal pain. OBJECTIVE: He is afebrile. Vital signs are stable. General: He is awake and alert. No acute distress. GI: Soft. Mildly tender in the right upper quadrant. No rebound or guarding. Laboratory: White blood cell count 5.5. INR 0.89. Total bilirubin 2.9, AST 65, ALT 51, alkaline phosphatase 288. Imaging: A HIDA scan today revealed no uptake of radiotracer into the gallbladder. ASSESSMENT AND PLAN: A 78-year-old male with acute cholecystitis and gallstone pancreatitis. The pancreatitis seems to have resolved. We are treating the cholecystitis currently with Zosyn and I am planning laparoscopic versus open cholecystectomy tomorrow. I discussed the risks and benefits with the family including bleeding, infection, injury to surrounding organs such as the intestines or bile duct, the possible need to convert to an open procedure, perioperative cardiovascular and pulmonary complications, and other imponderables. They understand and agree to proceed. cc: Angel Brown MD
[2019-01-05] MEDS: ZOSYN 3.375 GM in NS 50 ML IV SCH ×4 (00:41→20:06)
[2019-01-05] MEDS: NAMENDA PO SCH ×3 (01:16→20:06)
[2019-01-05 06:01] LABS: BASO# 0.01 X1000 (0.0-0.2); BASO% 0.2 % (0.0-0.8); EOS% 1.9 % (0.0-10.0); HEMATOCRIT 37.5 % (42.0-52.0); HEMOGLOBIN 12.8 g/dL (14.0-18.0); LYMPH# 1.57 X1000 (1.2-3.4); LYMPH% 29.8 % (20.5-51.1); MCH 32.7 PG (27-31); MCHC 34.1 g/dL (33-37); MCV 95.9 FL (81-99); MONO# 0.36 X1000 (0.11-0.59); MONO% 6.8 % (1.7-9.3); MPV 10.1 FL (7.4-10.4); NEUT# 3.22 X1000 (1.4-6.5); NEUT% 61.3 % (42.2-75.2); PLT 231 X1000 (130-400); RBC 3.91 XMIL (4.7-6.1); RDW 13.8 % (11.5-14.5); WBC 5.26 X1000 (4.8-10.8)
[2019-01-05 06:04] LABS: INR 0.91
[2019-01-05 06:21] LABS: AGAP 13; ALB/GLOB RATIO 0.9; ALBUMIN 3.3 g/dL (3.5-5.0); ALKALINE PHOSPHATASE 235 U/L (32-122); BUN 19 mg/dL (8-22); CALCIUM 8.5 mg/dL (8.8-10.2); CHLORIDE 104 mmol/L (98-107); COSMO 285; ESTIMATED GFR > 60; GLUCOSE 164 mg/dL (70-104); GOT 68 U/L (10-34); GPT 55 U/L (10-44); POTASSIUM 3.3 mmol/L (3.5-5.1); SODIUM 140 mmol/L (136-145); TCO2 23 mmol/L (25-35); TOTAL BILIRUBIN 2.39 mg/dL (0.20-1.00); TOTAL PROTEIN 7.1 g/dL (6.3-8.3)
[2019-01-05 06:38] LABS: EOS 1 % (1-10); LYMPHS 24 % (21-51); MONO 6 % (1-9); SEGS 68 % (42-75)
[2019-01-05] MEDS: NS 1,000 ML IV SCH (07:00)
[2019-01-05] MEDS: ARICEPT PO SCH (08:27)
[2019-01-05] MEDS: SYNTHROID PO SCH (08:27)
[2019-01-05] MEDS: ASPIRIN EC PO SCH (08:28)
[2019-01-05] MEDS: DIOVAN PO SCH (08:28)
[2019-01-05] MEDS: LASIX IV SCH (08:54)
[2019-01-05] MEDS: TOPROL XL PO SCH (08:56)
--- NOTE | 2019-01-05 11:32 | GENERAL SURGERY PROGRESS NOTE ---
DATE: 01/05/2019 SUBJECTIVE: The patient has no new complaints or events overnight. He continues to report some abdominal pain. OBJECTIVE: He is afebrile. Vital signs are stable. General: He is awake, alert, and oriented x4. No acute distress. Gastrointestinal: Soft, nondistended. Mildly tender in the upper abdomen. No rebound or guarding. Laboratory: White blood cell count 5.2, hemoglobin 12.8. INR 0.91. Electrolytes reviewed and unremarkable. LFTs are relatively stable from yesterday, but elevated. ASSESSMENT AND PLAN: A 78-year-old male with gallstone pancreatitis. The pancreatitis has resolved. He does have acute cholecystitis as well. He has congestive heart failure. We are planning a laparoscopic cholecystectomy with cholangiogram today. We have already gone over the risks and benefits with him and his family. They understand and agree to proceed. cc: Angel Brown MD
[2019-01-05] MEDS ORDERED: DIPRIVAN 1% ONE (11:38)
[2019-01-05] MEDS ORDERED: FENTANYL ONE (11:41)
[2019-01-05] MEDS: POTASSIUM CHLORIDE 20 MEQ/SWI 20 MEQ/100 ML IVPB IV SCH ×2 (13:47→21:22)
[2019-01-05] MEDS ORDERED: PRECEDEX ONE (15:05)
[2019-01-05] MEDS ORDERED: SODIUM CHLORIDE 0.9% ONE (15:14)
[2019-01-05] MEDS ORDERED: LR 1,000 ML ONE (15:14)
[2019-01-05] MEDS ORDERED: SENSORCAINE-MPF 0.5%/EPI 1:200,000 ONE (15:14)
[2019-01-05] MEDS ORDERED: STERILE WATER INJ. ONE (15:31)
[2019-01-05] MEDS ORDERED: NEO-SYNEPHRINE ONE (15:31)
[2019-01-05] MEDS ORDERED: EPHEDRINE ONE (15:55)
--- NOTE | 2019-01-05 16:12 | Diag Imaging Result Doc PS360 ---
EXAM: OPERATIVE CHOLANGIOGRAM INDICATION: ACUTE CHOLECYSTITIS TECHNIQUE: COMPARISON: None. FINDINGS: Two spot fluoroscopic images of the opacified common bile duct were provided, which were performed during cholecystectomy by Dr. Angel Brown. No intraductal filling defect or stricture is identified. There is normal passage of contrast into the small bowel. IMPRESSION: As above. Please correlate with live fluoroscopic imaging. Electronically signed by Dexter Johnson 01/05/2019 4:09 PM
[2019-01-05] MEDS: DILAUDID ONE ×7 (16:34→17:17)
--- NOTE | 2019-01-05 16:59 | OPERATIVE NOTE ---
PROCEDURE DATE: 01/05/2019 PREOPERATIVE DIAGNOSES: 1. Acute cholecystitis. 2. Gallstone pancreatitis. 3. Congestive heart failure. POSTOPERATIVE DIAGNOSES: 1. Acute cholecystitis. 2. Gallstone pancreatitis. 3. Congestive heart failure. PROCEDURE: Laparoscopic cholecystectomy with operative cholangiogram. SURGEON: Angel Brown MD. ANESTHESIA: General. ESTIMATED BLOOD LOSS: 5 mL. COMPLICATIONS: None apparent. SPECIMENS: Gallbladder. [employer] SUPERVISOR: Ernesto Aaron. COMPLICATIONS: None apparent. FINDINGS: The gallbladder appeared to be inflamed. The cholangiogram revealed contrast throughout the proximal hepatic radicles and distal common bile duct with contrast seen emptying into the duodenum. No filling defects or stenoses were appreciated. TECHNIQUE: The patient was brought to the operating room placed supine on the table. General anesthesia was induced. He was prepped and draped in usual sterile fashion. 0.25% Marcaine with epinephrine was used to anesthetize our incisions. An 11 mm incision was made below the umbilicus. The fascia was exposed and incised sharply. Entry into the peritoneal cavity was obtained under direct vision with the OptiALOSKO device. Pneumoperitoneum was established. The camera was inserted. There was no evidence of injury to underlying structures. He was placed in reverse Trendelenburg and left rotation. Three 5 mm incision ports were placed across the epigastric and right upper quadrant per usual routine. The dome of the gallbladder was grasped by the wellness assistant with an Allis clamp and lifted up superiorly. Omental adhesions were taken down from the gallbladder with hook cautery. The triangle of Calot was then dissected out with [place] forceps and hook cautery until the critical view was obtained. The gallbladder-liver junction was seen. There were only 2 structures entering the gallbladder, the cystic duct and cystic artery. The artery was clipped proximally and distally, incised between with scissors. A clip was placed on the distal cystic duct. A ductotomy was made proximal to this with scissors. A 14-gauge Angiocath was passed through the right upper quadrant. The Taut cholangiogram catheter was passed through this into the cystic duct and held in place with a clip. The cholangiogram was performed with findings as noted above. The clip, catheter and Angiocath were removed. Three clips were placed on the proximal cystic duct and was divided distal to these with scissors. The gallbladder was removed from the liver bed using hook cautery obtaining hemostasis along the way. I checked the liver bed for any bleeding. There was none. I irrigated and washed out the old blood and irrigation. The gallbladder was then brought out through the umbilical port site under direct vision. The ports were removed. The abdomen was desufflated. The umbilical fascia was closed with a [id number] 0 Vicryl. The skin was closed with a running 4-0 subcuticular Monocryl and Steri-Strips. There were no apparent complications. He was awakened in stable condition and transferred to the recovery room. cc: Angel Brown MD
--- NOTE | 2019-01-05 17:35 | PROGRESS NOTE ---
DATE: 01/05/2019 SUBJECTIVE: Patient has no major complaints. He is seen freshly postop so he is a little bit out of it, still under anesthetic effect. OBJECTIVE: Blood pressure 129/68, heart rate 66, respiratory 15, temperature 98.1 degrees.Cardiovascular: Regular rate and rhythm. Pulmonary: Bilateral breath sounds. Clear to auscultation. GI: Soft, nontender, nondistended. Bowel sounds are positive. LABORATORY DATA: Today his white count was 5, hemoglobin and hematocrit 12 and 37, platelets 231,000, potassium 3.3, AST and ALT of 68 and 55, alkaline phosphatase of 235. PROBLEMS: 1. Acute cholecystitis. He is freshly status post laparoscopic cholecystectomy with intraoperative cholangiogram which there is no obstruction. 2. Pancreatitis is stable currently, likely related to cholecystitis. 3. Congestive heart failure. We will continue to closely monitor especially during the postoperative period with need for volume resuscitation postoperatively. 4. Atrial fibrillation. He is stable. INR was decreased for the purpose of surgery, is at 0.91. I think that can be resumed at the discretion of surgery but I would say tomorrow. 5. Hypertension appears to be stable. DISPOSITION: Pending his clinical condition. We will continue to follow. cc: Hugo Ferrrao MD
[2019-01-05 19:15] LABS: ALBUMIN 3.6 g/dL (3.5-5.0); CALCIUM 8.7 mg/dL (8.8-10.2); CREATININE 1.2 mg/dL (0.7-1.2); POTASSIUM 3.9 mmol/L (3.5-5.1); TOTAL BILIRUBIN 2.56 mg/dL (0.20-1.00); TOTAL PROTEIN 7.2 g/dL (6.3-8.3)
[2019-01-05] MEDS: PERIDEX MT SCH (20:06)
[2019-01-05] MEDS: PERCOCET-10 PO PRN (23:49)
[2019-01-06] MEDS: ZOSYN 3.375 GM in NS 50 ML IV SCH (02:27)
[2019-01-06 05:55] LABS: BASO# 0.02 X1000 (0.0-0.2); BASO% 0.3 % (0.0-0.8); EOS# 0.18 X1000 (0.0-0.7); EOS% 2.9 % (0.0-10.0); HEMATOCRIT 37.8 % (42.0-52.0); HEMOGLOBIN 12.7 g/dL (14.0-18.0); IMM GRAN# 0.02 X1000 (0.0-0.04); IMM GRAN% 0.3 % (0.0-0.5); LYMPH# 1.19 X1000 (1.2-3.4); LYMPH% 19.5 % (20.5-51.1); MCH 32.9 PG (27-31); MCHC 33.6 g/dL (33-37); MCV 97.9 FL (81-99); MONO# 0.39 X1000 (0.11-0.59); MONO% 6.4 % (1.7-9.3); MPV 10.4 FL (7.4-10.4); NEUT# 4.31 X1000 (1.4-6.5); NEUT% 70.6 % (42.2-75.2); PLT 205 X1000 (130-400); RBC 3.86 XMIL (4.7-6.1); RDW 13.7 % (11.5-14.5); WBC 6.11 X1000 (4.8-10.8)
[2019-01-06 06:05] LABS: INR 0.9; PROTIME 12.8 Seconds (11.0-16.0)
--- NOTE | 2019-01-06 08:29 | GENERAL SURGERY PROGRESS NOTE ---
DATE: 01/06/2019 SUBJECTIVE: The patient is doing much better today. No severe abdominal pain. No nausea or vomiting. He is tolerating his liquids. He is hungry. OBJECTIVE: He is afebrile. Vital signs are stable. General: He is awake, alert, and oriented x3. No acute distress. Gastrointestinal: Soft, nondistended. Minimal tenderness. Incision is clean, dry, and intact. Laboratory: CBC reviewed and unremarkable. Electrolytes not ordered today. ASSESSMENT AND PLAN: A 78-year-old male status post laparoscopic cholecystectomy for acute cholecystitis and recent pancreatitis. These issues have now resolved. I will advance his diet today and stop the Zosyn. I think he can be discharged back to the alf tomorrow if he does not have any setbacks today with advancing his diet. cc: Angel Brown MD
[2019-01-06] MEDS: PERCOCET-10 PO PRN ×2 (08:55→22:59)
[2019-01-06] MEDS: NAMENDA PO SCH ×2 (08:58→22:59)
[2019-01-06] MEDS: PERIDEX MT SCH ×2 (08:58→22:59)
[2019-01-06] MEDS: SYNTHROID PO SCH (08:59)
[2019-01-06] MEDS: ASPIRIN EC PO SCH (09:00)
[2019-01-06] MEDS: DIOVAN PO SCH (09:00)
[2019-01-06] MEDS: LASIX IV SCH (09:00)
[2019-01-06] MEDS: TOPROL XL PO SCH (09:01)
[2019-01-06] MEDS: ARICEPT PO SCH (09:02)
[2019-01-06] MEDS ORDERED: COUMADIN PO SCH (21:00)
--- NOTE | 2019-01-06 23:25 | PROGRESS NOTE ---
DATE: 01/06/2019 SUBJECTIVE: The patient has no major complaints. He is eating a little bit. OBJECTIVE: Vital signs: Blood pressure 103/77, heart rate of 85, respiratory rate of 20, temperature 98 degrees. Cardiovascular: Regular rate and rhythm. Pulmonary: Bilateral breath sounds clear to auscultation. Gastrointestinal: Abdomen is soft, nontender, nondistended. Bowel sounds are positive. LABORATORY DATA: White count is 6, hemoglobin 12, hematocrit 37, platelets 305,000. INR is 0.9. Magnesium is 1.5. PROBLEM LIST: 1. Acute cholecystitis, status post laparoscopic cholecystectomy, postoperative day 1. We will continue to follow, advancing his diet. 2. Gallstone pancreatitis that is resolving. We will advance his diet and follow. 3. Congestive heart failure which appears to be compensated. 4. Atrial fibrillation. Appears to be stable. We will continue Coumadin and follow. Treat for goal INR above 2. 5. Hypertension. Continue regular medications. DISPOSITION: Hopefully discharge soon in the next 1 to 2 days, pending his clinical status. cc: Hugo Ferraro MD
[2019-01-07 06:18] LABS: BASO# 0.01 X1000 (0.0-0.2); BASO% 0.2 % (0.0-0.8); EOS# 0.19 X1000 (0.0-0.7); EOS% 3.6 % (0.0-10.0); HEMATOCRIT 40.3 % (42.0-52.0); HEMOGLOBIN 13.8 g/dL (14.0-18.0); IMM GRAN# 0.02 X1000 (0.0-0.04); IMM GRAN% 0.4 % (0.0-0.5); LYMPH# 1.33 X1000 (1.2-3.4); LYMPH% 25.3 % (20.5-51.1); MCH 33.2 PG (27-31); MCHC 34.2 g/dL (33-37); MCV 96.9 FL (81-99); MONO# 0.32 X1000 (0.11-0.59); MONO% 6.1 % (1.7-9.3); MPV 10.4 FL (7.4-10.4); NEUT# 3.39 X1000 (1.4-6.5); NEUT% 64.4 % (42.2-75.2); PLT 210 X1000 (130-400); RBC 4.16 XMIL (4.7-6.1); RDW 13.6 % (11.5-14.5); WBC 5.26 X1000 (4.8-10.8)
[2019-01-07 06:30] LABS: INR 0.91
[2019-01-07 06:47] LABS: AGAP 14; BUN 20 mg/dL (8-22); CALCIUM 8.7 mg/dL (8.8-10.2); CHLORIDE 101 mmol/L (98-107); COSMO 285; CREATININE 1.1 mg/dL (0.7-1.2); ESTIMATED GFR > 60; GLUCOSE 185 mg/dL (70-104); POTASSIUM 3.5 mmol/L (3.5-5.1); SODIUM 139 mmol/L (136-145); TCO2 24 mmol/L (25-35)
--- NOTE | 2019-01-07 07:48 | GENERAL SURGERY PROGRESS NOTE ---
DATE: 01/07/2019 SUBJECTIVE: The patient seems to be doing okay. He has been hemodynamically stable. His pain is less than it was prior to the surgery. His laboratory yesterday was okay from a surgical point of view. He can likely be discharged when okay with the hospitalist. cc: Jay Morin MD
[2019-01-07] MEDS: PERIDEX MT SCH (10:54)
[2019-01-07] MEDS: ASPIRIN EC PO SCH (10:55)
[2019-01-07] MEDS: TOPROL XL PO SCH (10:55)
[2019-01-07] MEDS: NAMENDA PO SCH (10:55)
[2019-01-07] MEDS: LASIX IV SCH (10:55)
[2019-01-07] MEDS: SYNTHROID PO SCH (10:55)
[2019-01-07] MEDS: ARICEPT PO SCH (10:55)
[2019-01-07] MEDS: PERCOCET-10 PO PRN (10:56)
[2019-01-07] MEDS: DIOVAN PO SCH (10:57)
[2019-01-07 15:37] VITALS: BP 98/53
--- NOTE | 2019-01-08 05:54 | DISCHARGE SUMMARY ---
ADMISSION DATE: 01/01/2019 DISCHARGE DATE: 01/07/2019 CONSULTATIONS: 1. Angel Brown MD, General Surgery 2. Chapin Parham MD, of Cardiology PERTINENT PROCEDURES: 1. Abdominal ultrasound. No change from prior. Very distended gallbladder with several gallstones inside, early cholecystitis cannot be excluded. 2. Echocardiogram EF of 25% with severe global hypokinesis. 3. HIDA scan showed probable acute cholecystitis. 4. Laparoscopic cholecystectomy with operative cholangiogram performed by Dr. Angel Brown. DISCHARGE DIAGNOSES: 1. Acute cholecystitis status post laparoscopic cholecystectomy by Dr. Brown. The patient's diet has been advanced. He is tolerating well and will be discharged home today with home health. 2. Gallstone pancreatitis, resolving. 3. Congestive heart failure that is compensated. 4. Atrial fibrillation, stable. The patient will be started back on his Coumadin. Continue to treat for a goal of an INR above 2. His discharge INR was 0.91, and he will be discharged on Coumadin 6 mg p.o. as directed, and have Home Health follow his PT and INRs. He will take 9 mg every Friday. 5. Hypertension. Continue home medications. 6. History of congestive heart failure with an EF of 20% with severe global hypokinesis. 7. Basal cell gland tumor removed. The patient has undergone radiation therapy. 8. Hypothyroidism. 9. Status post abdominal aortic aneurysm repair. 10. Benign prostatic hypertrophy. HOSPITAL COURSE: Briefly, Mr. Meléndez is a 78-year-old gentleman who carries a past medical history of dementia, paroxysmal atrial fibrillation on chronic anticoagulation with Coumadin, congestive heart failure, COPD, prior kidney stones, presented to the ED after being called by Dr. Peña that he had been instructed to come to the ED. He had a renal CT performed on the for hematuria and abdominal pain, and was found to have a nonobstructing 1 mm stone in the kidney as well as pancreatitis and numerous gallstones, a somewhat distended gallbladder and constipation. In the ED an ultrasound of the right upper quadrant was performed, which revealed a very distended gallbladder with several gallstones. Early cholecystitis could not be excluded. He was initiated on IV antibiotics and fluids and was admitted with a General Surgery consult. He was cleared for surgery by Cardiology. He underwent a laparoscopic cholecystectomy with an operative cholangiogram with Dr. Angel Brown. After his surgery his diet was slowly advanced. He tolerated it well. His gallstone pancreatitis was resolving, and he will be discharged home to continue on his home medications as well as Coumadin and home health. VITAL SIGNS AT TIME OF DISCHARGE: Temperature is 98.1 degrees, heart rate 119, respirations 22, blood pressure 98/53, O2 is 98% on room air. DISCHARGE DIET: GI soft. DISCHARGE MEDICATIONS: 1. Zocor 20 mg p.o. at bedtime. 2. Aricept 5 mg p.o. daily. 3. Coumadin 6 mg p.o. daily except for Friday 9 mg. 4. Finasteride 5 mg p.o. daily. 5. Namenda 10 mg p.o. b.i.d. 6. Nexium 20 mg p.o. p.r.n. 7. Synthroid 150 mcg p.o. daily. 8. Ventolin inhaler 2 inches inhaled daily. 9. Xanax 1 mg p.o. p.r.n. 10. Nitroglycerin 0.4 mg sublingual q.5h minutes. 11. Aspirin 81 mg p.o. daily. 12. Valsartan 40 mg p.o. daily. 13. Flomax 0.4 mg p.o. daily. 14. Januvia 50 mg p.o. daily. 15. Lasix 40 mg p.o. daily. 16. Percocet 1 to 2 each p.o. q.4-q.6 hours p.r.n. pain. 17. Toprol-XL 25 mg p.o. daily. FOLLOWUP: Mr. Meléndez is being discharged home with home health. He is to follow up with Dr. Valles on 01/21/2019, at 12:45 p.m., as well as his primary care provider Dr. Harman Voss. He can return to the ED or call 911 for any worsening of symptoms. Dictated by CARLIN Bernardo for Hugo Ferraro MD cc: MD Angel Taylor MD
--- NOTE | 2019-01-08 07:08 | DISCHARGE SUMMARY ---
ADMISSION DATE: 01/01/2019 DISCHARGE DATE: 01/07/2019 SUBJECTIVE: The patient has no major complaints on the day of discharge. He is weak but he is getting up and around. OBJECTIVE: Vital Signs: Blood pressure is 98/53, heart rate 119, respiratory rate 22, temperature 98.8 degrees, and 98% on room air. Cardiovascular: Regular rate and rhythm. Pulmonary: Bilateral breath sounds clear to auscultation. GI: Soft, nontender, and nondistended. Bowel sounds are positive. Skin: His incisions are clean, dry, and intact. DISCUSSION: He is sitting up in bed. He is smiling. He is tolerating p.o. White count is 5, hemoglobin and hematocrit 13 and 40. Rest of his electrolytes look okay. From the cholecystitis standpoint, he is stable for discharge. He also has pancreatitis which is improving. CHF which is compensated now. His atrial fibrillation I think is not controlled, and his Coumadin is subtherapeutic. He will need a PT/INR check in about 48 hours. He has no history of DVT's, so I think we can let this go up slowly because he had to be reversed for the purpose of surgery. I am not sure who is following his PT/INR, but it will need to be monitored in about 48 hours or definitely by Friday. We will discharge him on his usual dose which looks like he is 6 mg daily and then 9 mg on Friday which I think is reasonable. We have only started 5, and his INR is 0.91. [facility], and he also sees Dr. Shanika fernandes for monitoring of his PT/INR. DISCHARGE CONDITION: Stable. MEDICATIONS: We made no major changes in his medications. TIME SPENT: A 32 minute discharge [id number] encounter note with CARLIN Seo. cc: Hugo Ferraro MD
== END 2019-01-07 16:15 | disposition home health service (06) | DRG 417 ==
LOC: ED 12:27 → SUATTDRO 18:08 → 3S 18:08 → 4N 01-04 08:48
PROVIDERS: ATTEND Internal Medicine
CPT/HCPCS: 71010; 71045; 74176; 74300; 76705; 78226; 80048; 80053; 80076; 81001; 82150; 82948; 83690; 83735; 84443; 85025; 85610; 85730; 88304; 93306; 94761; 94799; 96365; 96375; 97162; 97530; 99285; A9270; A9537; C1751; J1170; J1940; J2370; J2405; J2543; J3010; J3430; J3480; J7030; J7040; J7120; Q9966; Q9967; XXXXX

== ENCOUNTER 2019-04-12 14:55 | Inpatient (IN) ==
[2019-04-12] MEDS ORDERED: NS 1,000 ML IV ONE (15:44)
--- NOTE | 2019-04-12 15:50 | EKG Report ---
Test Performed on : 04/12/2019 3:45:19 PM Test Reason : HYPOTENSION Blood Pressure : / mmHG Vent. Rate : 072 BPM Atrial Rate : 119 BPM P-R Int : 000 ms QRS Dur : 144 ms QT Int : 386 ms P-R-T Axes : 000 -35 145 degrees QTc Int : 422 ms Atrial fibrillation. with a competing junctional pacemaker. Left axis deviation Left bundle branch block Abnormal ECG When compared with ECG of 08-MAR-2019 11:24, (Unconfirmed) ST elevation has replaced ST depression in Anterior leads QT has lengthened Unconfirmed Result
[2019-04-12 15:57] LABS: BASO# 0.02 X1000 (0.0-0.2); BASO% 0.3 % (0.0-0.8); EOS# 0.02 X1000 (0.0-0.7); EOS% 0.3 % (0.0-10.0); HEMATOCRIT 36.3 % (42.0-52.0); HEMOGLOBIN 12.2 g/dL (14.0-18.0); LYMPH# 0.82 X1000 (1.2-3.4); LYMPH% 11.8 % (20.5-51.1); MCH 33.1 PG (27-31); MCHC 33.6 g/dL (33-37); MCV 98.4 FL (81-99); MONO% 7.2 % (1.7-9.3); MPV 10.5 FL (7.4-10.4); NEUT# 5.57 X1000 (1.4-6.5); NEUT% 80.4 % (42.2-75.2); PLT 183 X1000 (130-400); RBC 3.69 XMIL (4.7-6.1); RDW 14.8 % (11.5-14.5); WBC 6.93 X1000 (4.8-10.8)
--- NOTE | 2019-04-12 16:11 | PROVIDER DOCUMENTATION ---
This chart was entered by Kiara Chairez Scribe, acting as scribe for Ivette Villasenor CRNP. HPI-General Adult - General Chief Complaint: B/P Problems Stated Complaint: HYPOTENSION Time Seen by Provider: 04/12/19 15:58 Source: patient Allergies/Adverse Reactions: Patient Allergies Allergy/AdvReac Type Severity Reaction Status Date / Time morphine Allergy Mild ITCHING Verified 01/01/19 12:42 aspirin AdvReac Intermediate PUD Verified 01/01/19 12:42 Home Medications: Home Medication List Medication Instructions Recorded Confirmed Last Taken Type Levothyroxine [Synthroid] 150 microgm PO DAILY 06/16/12 01/01/19 07/26/17 History SIMVAstatin [Zocor] 20 mg PO QHS 06/16/12 01/01/19 07/26/17 History Memantine [Namenda] 10 mg PO BID 11/09/15 01/01/19 07/26/17 History Tamsulosin [Flomax] 0.4 mg PO DAILY #30 capsule 11/10/15 01/01/19 07/26/17 Rx Warfarin Sodium [Coumadin] 6 mg PO DIRECTED 03/09/16 01/01/19 07/26/17 History Nitroglycerin Sl [Nitroglycerin] 0.4 mg SL Q5M PRN PRN #10 tablet 11/19/16 01/01/19 07/26/17 Rx Oxycodone/APAP 10 mg/325 mg 1 - 2 each PO Q4-6H PRN PRN #40 11/19/16 01/01/19 07/26/17 Rx [Percocet-10] tablet Alprazolam [Xanax] 1 mg PO PRN PRN 04/30/17 01/01/19 07/26/17 History Donepezil [Aricept] 5 mg PO DAILY 04/30/17 01/01/19 07/26/17 History Esomeprazole Magnesium [Nexium] 20 mg PO PRN PRN 04/30/17 01/01/19 Unknown History Albuterol Sulfate [Ventolin Hfa] 2 inh INH DAILY PRN PRN 07/26/17 01/01/19 Unknown History Finasteride 5 mg PO DAILY 07/26/17 01/01/19 07/26/17 History Aspirin [Aspirin EC] 81 mg PO DAILY #30 tablet. 07/30/17 01/01/19 Unknown Rx Furosemide [Lasix] 40 mg PO DAILY #30 tablet 07/30/17 01/01/19 Unknown Rx Metoprolol Succinate E.r. [Toprol 25 mg PO DAILY #30 tab 07/30/17 01/01/19 Unknown Rx Xl] Sitagliptin [Januvia] 50 mg PO DAILY #30 tab 07/30/17 01/01/19 Unknown Rx Valsartan [Diovan] 40 mg PO DAILY #30 tab 07/30/17 01/01/19 Unknown Rx Hydroxyzine Pamoate [Vistaril] 25 mg PO Q4-6H PRN PRN #20 cap 03/08/19 Unknown Rx - History of Present Illness -Gen Adult Nature of Presenting Problems: 78 y/o male presents to ED with generalized weakness, hypotension, and poor appetite onset 2 days ago. 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 Pt is on coumadin for previous open heart sx. Home health reported INR of 6 today. Pt is alert and oriented. Location of Pain/Injury: reports: none Pain Radiation: reports: no radiation Quality of Pain: reports: none Severity: reports: moderate Onset/Duration: reports: 2 days ago Timing: reports: still present Context/Activities at Onset: reports: none Modifying Factors: improves with: nothing Associated Symptoms: reports: loss of appetite, weakness, other (hypotension) Similar Symptoms Previously?: No Recently seen or treated by another doctor?: No Review of Systems - Adult - REVIEW OF SYSTEMS - ADULT Constitutional: reports: other (hypotension). denies: chills, fever Eyes: reports: no symptoms reported Ears, Nose, Mouth & Throat: reports: no symptoms reported Cardiovascular: reports: other (hypotension). denies: chest pain, palpitations Respiratory: denies: cough, shortness of breath Gastrointestinal: reports: poor appetite. denies: abdominal pain, hematemesis, diarrhea, nausea, vomiting Genitourinary: reports: no symptoms reported Musculoskeletal: denies: back pain, joint pain Integumentary: reports: no symptoms reported Neurological: reports: other (weakness). denies: dizziness/vertigo, seizure Psychiatric: reports: no symptoms reported Endocrine: reports: no symptoms reported Hematologic/Lymphatic: reports: no symptoms reported Allergic/Immunologic: reports: no symptoms reported All Other Systems: Reviewed and Negative Past History - Adult - PAST MEDICAL HISTORY-ADULT Review of Records: reports: Old Records Reviewed, Nursing Assessment Review, Medications Reviewed Major Childhood Illnesses: reports: denies history Cardiovascular: reports: cardiac disease, A-Fib, aortic disease (AAA), CAD, CHF, HTN, hyperlipidemia Respiratory: reports: asthma, COPD, lung disease (asbestoisis), other (histoplasmosis; emphysema) Genitourinary: reports: other (BPH) Neurological: reports: Alzheimer's, dementia, TIA Endocrine/Immune: reports: Diabetes, thyroid disorder (hypo) Other Conditions: reports: other cancer (salivary gland; basal cell carcinoma) - PRIOR SURGERIES/PROCEDURES Surgical/Procedure History: reports: CABG, hernia repair, joint replacement (TKR), other (cardiac ablation, AAA repair, lithrotripsy) - IMMUNIZATION STATUS Childhood Immunizations: See Nurse Assessment Flu Vaccine: See Nurse Assessment - FAMILY HISTORY Family History: reviewed, not pertinent - SOCIAL HISTORY Smoking: quit greater than 1 year Substance Use: none/never Alcohol Use Frequency: never Living Situation: family Physical Exam-General - PHYSICAL EXAM-ADULT Initial Vital Signs Reviewed: Yes - CONSTITUTIONAL General Appearance: appears well, alert, no apparent distress - EYES Eyes: PERRL/EOMI, pink conjunctivae - HEAD, EARS, NOSE, MOUTH & THROAT HENMT: normocephalic/atraumatic, moist mucous membranes, normal ENT inspection - NECK Neck: non-tender, full range of motion - RESPIRATORY Respiratory: chest non-tender, lungs clear, normal breath sounds - CARDIOVASCULAR Cardiovascular: normal peripheral pulses, regular rate, rhythm - GASTROINTESTINAL (ABDOMEN) Abdominal Exam: normal bowel sounds, non tender, soft - MUSCULOSKELETAL Back Exam: normal inspection, no CVA tenderness, no vertebral tenderness Extremity: normal range of motion, non-tender, no calf tenderness. negative: calf tenderness - SKIN Integumentary: warm/dry, erythema (LLE lateral aspect of the calf), pallor, swelling (LLE lateral aspect of the calf), warm (LLE lateral aspect of the calf) - NEUROLOGIC Neurologic: grossly normal - PSYCHIATRIC Psych/Mental Status: normal mood/affect, normal thought content, normal thought process, oriented x 3 Progress - PLAN OF CARE/RESULTS Progress/Plan/Lab Results: Vital Signs - 8 hr 04/12/19 15:01 04/12/19 15:28 Temperature 98.3 F 98.2 F Pulse Rate 74 60 Respiratory Rate 16 16 Blood Pressure 87/60 92/50 O2 Sat by Pulse Oximetry 96 99 Orders Category Date Time Status cxr [CHEST-2 VIEWS] [RAD] Stat Exams 04/12/19 15:46 Ordered BLOOD CULTURE [BLDCUL] Stat Lab 04/12/19 15:48 Uncollected CBC WITH ELECTRONIC DIFF [HEME] Stat Lab 04/12/19 15:35 Results COMPREHENSIVE METABOLIC PANEL [CHEM] Stat Lab 04/12/19 15:35 Received LACTATE, PLASMA [CHEM] Stat Lab 04/12/19 15:48 Uncollected PROTIME WITH INR [COAG] Stat Lab 04/12/19 15:35 Received PTT [COAG] Stat Lab 04/12/19 15:35 Received URINALYSIS W/POSS RFLX CULT [URINALYSIS] Stat Lab 04/12/19 15:46 Uncollected 0.9% Sodium Chloride Inj [Ns] 1,000 ml Med 04/12/19 15:44 Active IV 999 mls/hr EKG [EKG] Stat Ther 04/12/19 15:46 Draft Stool occult blood is negative. Laboratory Tests 04/12/19 04/12/19 04/12/19 15:35 15:35 15:35 WBC 6.93 RBC 3.69 L Hgb 12.2 L Hct 36.3 L MCV 98.4 MCH 33.1 H MCHC 33.6 RDW Std Deviation 14.8 H Plt Count 183 MPV 10.5 H Neut % (Auto) 80.4 H Lymph % (Auto) 11.8 L Lamar % (Auto) 7.2 Eos % (Auto) 0.3 Baso % (Auto) 0.3 Neut # (Auto) 5.57 Lymph # (Auto) 0.82 L Lamar # (Auto) 0.50 Eos # (Auto) 0.02 Baso # (Auto) 0.02 PT 42.8 H INR 4.30 PTT (Actin FS) 86.7 H Sodium 139 Potassium 4.1 Chloride 102 Carbon Dioxide 22 L Anion Gap 15 BUN 27 H Creatinine 1.0 Estimated GFR/1.73 m2 > 60 BUN/Creatinine Ratio 27 Glucose 204 H Calculated Osmolality 289 Calcium 9.2 Total Bilirubin 0.79 AST 23 ALT 19 Alkaline Phosphatase 66 Total Protein 7.0 Albumin 3.6 Globulin 3.4 Albumin/Globulin Ratio 1.1 Plasma Lactate Blood Type Antibody Screen 04/12/19 04/12/19 16:06 16:30 WBC RBC Hgb Hct MCV MCH MCHC RDW Std Deviation Plt Count MPV Neut % (Auto) Lymph % (Auto) Lamar % (Auto) Eos % (Auto) Baso % (Auto) Neut # (Auto) Lymph # (Auto) Lamar # (Auto) Eos # (Auto) Baso # (Auto) PT INR PTT (Actin FS) Sodium Potassium Chloride Carbon Dioxide Anion Gap BUN Creatinine Estimated GFR/1.73 m2 BUN/Creatinine Ratio Glucose Calculated Osmolality Calcium Total Bilirubin AST ALT Alkaline Phosphatase Total Protein Albumin Globulin Albumin/Globulin Ratio Plasma Lactate 2.4 H Blood Type A POSITIVE Antibody Screen NEGATIVE Result Diagrams: 04/12/19 15:35 04/12/19 15:35 - EKG 1 Time of EKG reading by physician:: 15:50 EKG Read and Signed by:: Maria Guadalupe Mcfadden EKG Interpretation (*Must complete 3 of following elements*): Abnormal Rate: 72 Rhythm: Afib with competing junctional pacemaker [place]: left QRS: LBB DE Interval: normal ST Wave: normal - XRAY 1 XRAY Study: Chest Impression: See EMR Report ([facility] - [address] [place] [address] [place], [place] [id number] [facility] - [address] [place] [address] Department of Imaging Patient: ELKE RIGGS Date: 04/12/19#: [id number] : 1940ADM [id number] Age/Sex: 78/MRoom/Bed: Loc: ED Ordering Physician: Ivette Villasenor Family Physician: Harman Voss MD Reason for Procedure: HYPOTENSION Signed CHEST-2 VIEWS - 04/12/2019 INDICATION: HYPOTENSION COMPARISON: 03/08/2019 FINDINGS: Stable sternotomy wires. The lungs are clear. Heart size is normal. No pneumothorax or pleural effusion. There are advanced degenerative changes throughout the thoracic spine. IMPRESSION: Negative exam. Electronically signed by Shar Monzon 04/12/2019 4:14 PM 04/12/19 1614 Interpreting Physician: Sahr Monzon MD Dictated Date/Time: 04/12/19 1613 cc: Ivette Villasenor; Harman Voss MD) - CONSULTS/PCP/HOSPITALIST Notification #1 *Consult/PCP/Hospitalist*: DR ROSA Time Discussed: 19:56 Consult Disposition: Admit Departure - Departure Date of Disposition Decision: 04/12/19 Time of Disposition Decision: 19:57 DIAGNOSIS: Weakness, Hypotension Disposition: HOME 01 Certified Medical Emergency: Emergent Condition: Stable Referrals and Follow-Ups: Harman Voss MD [Primary Care Provider] - - Critical Care Note This patient required my direct & personal management of CC.: No Attestation - Physician/ NICHO Attestation Patient care was provided by Advanced Practice Provider:: Yes Advanced Practice Provider:: Ivette Villasenor Advanced Practice Provider documentation review:: The Mid-level provider documentation, treatment plan and medical decision making was reviewed by the physician who agrees with all treatment and medical decision making by the P. The physician spent face to face time with patient:: No Advanced Practice Provider documentation review:: Supervising physician onsite and consulted in the evaluation and care of this patient. The physician did not have a face to face encounter with the patient. This chart was documented by the indicated scribe, (Kiara Chairez Scribe) and accurately reflects the services I performed and decisions made by me, Ivette Villasenor CRNP, as attested by the provider's signature.
--- NOTE | 2019-04-12 16:16 | Diag Imaging Result Doc PS360 ---
CHEST-2 VIEWS - 04/12/2019 INDICATION: HYPOTENSION COMPARISON: 03/08/2019 FINDINGS: Stable sternotomy wires. The lungs are clear. Heart size is normal. No pneumothorax or pleural effusion. There are advanced degenerative changes throughout the thoracic spine. IMPRESSION: Negative exam. Electronically signed by Shar Monzon 04/12/2019 4:14 PM
[2019-04-12 16:42] LABS: INR 4.3; PROTIME 42.8 Seconds (11.0-16.0); PTT 86.7 Seconds (22.3-41.8)
[2019-04-12 16:43] LABS: AGAP 15; ALB/GLOB RATIO 1.1; ALBUMIN 3.6 g/dL (3.5-5.0); ALKALINE PHOSPHATASE 66 U/L (32-122); BUN 27 mg/dL (8-22); CALCIUM 9.2 mg/dL (8.8-10.2); CHLORIDE 102 mmol/L (98-107); COSMO 289; ESTIMATED GFR > 60; GLUCOSE 204 mg/dL (70-104); GOT 23 U/L (10-34); GPT 19 U/L (10-44); POTASSIUM 4.1 mmol/L (3.5-5.1); SODIUM 139 mmol/L (136-145); TCO2 22 mmol/L (25-35); TOTAL BILIRUBIN 0.79 mg/dL (0.20-1.00)
[2019-04-12 18:50] LABS: URINE SOURCE CLEAN CATCH
[2019-04-12 18:54] LABS: BILIRUBIN URINE NEGATIVE (NEGATIVE); BLOOD URINE NEGATIVE (NEGATIVE); COLOR YELLOW; GLUCOSE URINE 150 mg/dL (NEGATIVE); KETONE URINE NEGATIVE (NEGATIVE); LEUKOCYTES URINE NEGATIVE (NEGATIVE); NITRITE URINE NEGATIVE (NEGATIVE); PH URINE 5.5; PROTEIN URINE TRACE mg/dL (NEGATIVE); SP GRAVITY URINE 1.027; TURBIDITY URINE CLEAR (CLEAR); UROBILINOGEN URINE 4 mg/dL (NORMAL)
[2019-04-12 18:55] LABS: UR EPITHELIAL CELLS <10 /HPF (<10); URINE BACTERIA NEGATIVE /HPF; URINE RBC <10 /HPF (<10); URINE WBC <10 /HPF (<10)
[2019-04-12] MEDS ORDERED: VANCOMYCIN IV PER PHARMACY MISC SCH (20:15)
[2019-04-12] MEDS ORDERED: TYLENOL PO PRN (20:17)
[2019-04-12] MEDS ORDERED: ZOFRAN IV PRN (20:17)
[2019-04-12] MEDS ORDERED: NITROGLYCERIN SL PRN (20:20)
[2019-04-12] MEDS ORDERED: VENTOLIN HFA INH PRN (20:20)
[2019-04-12] MEDS ORDERED: NEXIUM PO PRN (20:20)
[2019-04-12] MEDS ORDERED: XANAX PO PRN (20:20)
[2019-04-12] MEDS ORDERED: VANCOMYCIN 1,750 MG in NS 250 ML IV ONE (21:00)
[2019-04-12] MEDS: NS 1,000 ML IV SCH (21:13)
--- NOTE | 2019-04-12 21:36 | HISTORY AND PHYSICAL ---
PRIMARY CARE PHYSICIAN: Dr. Harman Voss. ORNAMENTAL METAL FABRICATOR APPRENTICE: Ron Sigala MD PRESENTING COMPLAINT: Generalized weakness, poor appetite, swelling to left leg. HISTORY OF PRESENTING COMPLAINT: Mr. 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 Sandhya Rivas. The patient refers to have finished treatment about 2 weeks ago. Since then, he has been remarkably weak, very fatigued and unable to move around. He is almost practically bed- bound. He was brought to the emergency room today and was found to be extremely hypotensive with a blood pressure of 87/60. The patient was initially fluid resuscitated, and an attempt was made to have orthostatic vitals; however, he became extremely dizzy so this was unable to be obtained. We have been consulted for admission. PAST MEDICAL HISTORY: 1. Atrial fibrillation. 2. Congestive heart failure. 3. Severe coronary artery disease status post CABG. 4. BPH. 5. Hypothyroid. 6. Salivary gland malignancy. PAST SURGICAL HISTORY: 1. AAA repair. 2. CABG. 3. Cholecystectomy. 4. Bilateral knee arthroplasty. 5. Hernia repair. FAMILY HISTORY: Unremarkable. SOCIAL HISTORY: Patient currently lives with . Denies any tobacco or alcohol use. No illicit drugs. ALLERGIES: To morphine, makes him itch a little bit. CURRENT MEDICATIONS: Have all been reviewed. The patient is currently on: 1. Levothyroxine 150 mcg p.o. daily. 2. Aspirin 81 mg daily. 3. Losartan 40 mg p.o. daily. 4. Sitagliptin. 5. Metoprolol 25 p.o. daily. 6. Furosemide 40 mg p.o. daily. 7. Finasteride 5 mg p.o. daily. REVIEW OF SYSTEMS: Fourteen-point review of systems conducted with Mr. Meléndez. Unremarkable except what we have in the HPI. Specifically, he denies any chest pain. No shortness of breath. No fever. The patient, however, is said to have lost a lot of weight recently. PHYSICAL EXAMINATION: GENERAL: Mr. Meléndez is a 78-year-old male. He is in bed. He is not in any cardiopulmonary distress. HEENT: Mucosa is pink, slightly dry. Anicteric. Acyanotic. Head is normocephalic and atraumatic. There is an open wound over the left parietal frontal scalp with scab and good granulation tissue. The surrounding areas have some erythematous changes. There is also an erosion behind the left ear, and this time this is where Mr. Meléndez sustained the radiation therapy. NECK: Supple with no meningeal signs. RESPIRATORY SYSTEM: Good air entry bilaterally. No crepitations. No rhonchi. There is no accessory muscle use. CARDIOVASCULAR: Irregularly irregular but rate controlled. No murmurs, no rubs, no gallops. GASTROINTESTINAL: Abdomen is soft, nontender. Bowel sounds present. There is no hepatosplenomegaly. EXTREMITIES: No pedal edema. The left mid leg has some swelling laterally with mild petechial lesion on top. It is slightly warm and is tender. LABORATORY DATA: WBC is 6.92, hemoglobin is 12.2, platelet count of 183,000. Chemistry is also reviewed. Plasma lactate is 2.4. IMAGING: A chest x-ray, which was done was negative, and an EKG shows atrial fibrillation, left axis deviation and left bundle branch block. ASSESSMENT: Mr. Meléndez who is a 78-year-old elderly male with multiple comorbidities presents with generalized weakness, hypotension with dizziness on orthostatics. 1. Hypotension. We think this is a combination of dehydration, medication side effects, possible cardiac causes since patient has atrial fibrillation and possibility of underlying sepsis. Mr. Meléndez has been fluid resuscitated; however, he remains orthostatic positive so we are going to continue with gentle IV fluids. We will start him on broad-spectrum IV antibiotics. Cultures have been done. We will follow up and titrate accordingly. 2. Left leg swelling. I suspect there is probably an underlying hematoma from the anticoagulation, which has a superimposed cellulitis. We will start the patient on broad- spectrum antimicrobial, and we will also consult ID. I have ordered a Doppler ultrasound to get us a better idea of what is going on. 3. Mildly supratherapeutic INR of 4.30. We will withhold the anticoagulant tonight. Repeat the coagulation panel tomorrow and make a decision accordingly. 4. History of atrial fibrillation. Currently patient is rate controlled. We will continue with the metoprolol. 5. Hypertension. The patient is currently hypotensive so we will withhold home medications. 6. Clinical volume depletion noted. The patient will be on IV fluids. cc: Ayush Majano MD
[2019-04-12] MEDS: ZOSYN 3.375 GM in NS 50 ML IV SCH (23:26)
[2019-04-13] MEDS: ZOCOR PO SCH ×2 (01:12→22:00)
[2019-04-13] MEDS: NAMENDA PO SCH ×3 (01:12→22:00)
[2019-04-13] MEDS ORDERED: NORCO-7.5 PO SCH (02:00)
[2019-04-13] MEDS: NORCO-7.5 PO SCH ×4 (04:52→23:50)
[2019-04-13] MEDS: ZOSYN 3.375 GM in NS 50 ML IV SCH (04:57)
[2019-04-13 09:39] LABS: BASO# 0.01 X1000 (0.0-0.2); BASO% 0.1 % (0.0-0.8); EOS# 0.06 X1000 (0.0-0.7); EOS% 0.9 % (0.0-10.0); HEMATOCRIT 35.2 % (42.0-52.0); HEMOGLOBIN 11.9 g/dL (14.0-18.0); IMM GRAN# 0.02 X1000 (0.0-0.04); IMM GRAN% 0.3 % (0.0-0.5); LYMPH% 16.2 % (20.5-51.1); MCH 32.7 PG (27-31); MCHC 33.8 g/dL (33-37); MCV 96.7 FL (81-99); MONO# 0.43 X1000 (0.11-0.59); MONO% 6.4 % (1.7-9.3); NEUT# 5.15 X1000 (1.4-6.5); NEUT% 76.1 % (42.2-75.2); PLT 194 X1000 (130-400); RBC 3.64 XMIL (4.7-6.1); RDW 14.7 % (11.5-14.5); WBC 6.77 X1000 (4.8-10.8)
[2019-04-13 09:59] LABS: INR 4.03
[2019-04-13 10:13] LABS: AGAP 11; ALB/GLOB RATIO 1.2; ALBUMIN 3.6 g/dL (3.5-5.0); ALKALINE PHOSPHATASE 68 U/L (32-122); BUN 15 mg/dL (8-22); CALCIUM 9.1 mg/dL (8.8-10.2); CHLORIDE 105 mmol/L (98-107); COSMO 279; CREATININE 0.8 mg/dL (0.7-1.2); ESTIMATED GFR > 60; GLUCOSE 148 mg/dL (70-104); GOT 23 U/L (10-34); GPT 18 U/L (10-44); MAGNESIUM 1.2 mg/dL (1.5-2.7); POTASSIUM 3.6 mmol/L (3.5-5.1); SODIUM 138 mmol/L (136-145); TCO2 22 mmol/L (25-35); TOTAL BILIRUBIN 1.23 mg/dL (0.20-1.00); TOTAL PROTEIN 6.5 g/dL (6.3-8.3)
[2019-04-13 10:16] LABS: PROTIME 40.6 Seconds (11.0-16.0)
--- NOTE | 2019-04-13 10:25 | INFECTIOUS DISEASE CONSULT REP ---
DATE: 04/13/2019 CONCLUSION: The patient has a swollen, tender left lower extremity. There is some erythema on the leg also. The leg could have cellulitis, and there also may be another infection deeper in the leg tissue. RECOMMENDATIONS: I have discontinued Zosyn, and instead put the patient on cefepime. I agree with treating with vancomycin. I have ordered a noncontrasted CT scan of the left leg. DISCUSSION: The patient was unable to give a history. The information I got was through the computer. The patient came in with generalized weakness, poor appetite, and swelling of the left leg. His CBC shows a white count of 6930, hemoglobin 12.2, and platelet count 183,000. Creatinine is 1. GFR is greater than 60. Liver function studies are normal. Urinalysis is negative for bacteria and white blood cells. Blood cultures are pending. Chest x-ray shows clear lung lan. PAST MEDICAL HISTORY: Positive for atrial fibrillation, congestive heart failure, coronary artery disease, benign prostatic hypertrophy, hypothyroid, salivary gland malignancy, hyperlipidemia, diabetes, dementia, and gastroesophageal reflux disease. PAST SURGICAL HISTORY: Positive for coronary artery bypass grafting, abdominal aortic aneurysm repair, cholecystectomy, bilateral knee arthroplasty, and hiatal hernia. FAMILY HISTORY: Said to be unremarkable. SOCIAL HISTORY: The patient lives with his . He does not smoke cigarettes, drink alcoholic beverages, or use illicit drugs. ALLERGIES: The patient has an allergy to morphine and aspirin. HOME MEDICATIONS: Include albuterol inhaler, Xanax, Aricept, Nexium, finasteride, Lasix, Vistaril, Synthroid, Namenda, metformin, metoprolol, Ondansetron, oxycodone, Zocor, Januvia, Flomax, Diovan, and Coumadin. REVIEW OF SYSTEMS: Unable to be obtained from the patient. PHYSICAL EXAMINATION: Vital Signs: Temperature is 98.2 degrees, pulse 85, respirations 20, blood pressure 119/69. The patient is 5 feet 6 inches tall, weighs 142 pounds. General: This is an ill-appearing, elderly male. He is in no acute distress. HEENT: He could hear my spoken words. He could see near objects. I did not notice any white patches in his mouth. The left side of the patient's head does not have any hair on it, and it has a large eschar. The patient's granddaughter told me that the patient is getting radiation therapy to that part of his head. Neck: No meningismus. Lungs: Clear to auscultation. Cardiovascular: Heart rate is irregular. Abdomen: Soft and nontender. Neurologic: The patient is alert. He can move his extremities. He had a decrease in his memory regarding his medical history. Extremities: The patient's left leg is swollen and tender. There is an area just below the knee where it is erythematous. CO Thank you for the consult. cc: Rashid Curry MD MTDD
[2019-04-13] MEDS: NS 1,000 ML IV SCH (10:58)
[2019-04-13] MEDS: ASPIRIN EC PO SCH (11:00)
[2019-04-13] MEDS: PROSCAR PO SCH (11:01)
[2019-04-13] MEDS: SYNTHROID PO SCH (11:01)
[2019-04-13] MEDS: TOPROL XL PO SCH (11:01)
[2019-04-13] MEDS: ARICEPT PO SCH (11:03)
[2019-04-13] MEDS: MAXIPIME 2 GM in NS 100 ML IV SCH ×2 (11:11→23:50)
--- NOTE | 2019-04-13 11:55 | CARDIOLOGY CONSULTATION ---
DATE: 04/13/2019 CONSULTATION REQUESTED BY: Hospitalist service. REASON FOR CONSULTATION: Low blood pressure, weakness. HISTORY: Mr. Meléndez is an unfortunate, 78-year-old, male known to us from the clinic. We have followed him for a number of years. Since his last visit with me on 10/28/2018, the patient has been admitted to this hospital in December of 2018, January 01, with acute pancreatitis due to chronic cholelithiasis. He underwent cholecystectomy at that time. Prior to that, he had been found to have a mass in the left side of the neck at the level of the parotid gland. 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 He has been treated with radiation therapy and that was just finished about 2 weeks ago. The patient presented to the ER on March 08, complaining about feeling weak. His blood pressure was running low. At this time, he is admitted to the hospital because for the past few days, he has been feeling increasingly weaker. Blood pressure has been running low. He cannot get up and move. His appetite is very poor. He denies having any chest pain. He does not appear to be dyspneic. In fact, he is just laying flat in bed horizontal and he is not in any distress. He appears to be very debilitated compared to prior office visit. PAST MEDIAL HISTORY: Past history is extensive. He has severe coronary heart disease, previous bypass surgery. Per my records, he has had a coronary bypass procedure in the past, in 1993. The last heart catheterization on him was done in 2011. At that time, the HOMERO to LAD was patent. The vein graft to diagonal was occluded, as well as the graft to the right coronary artery. Medical therapy was advised. He has had a followup stress test in October of 2016 that showed large fixed severe defect in the inferior wall with corresponding dyskinesis consistent with a scar. His echocardiogram performed recently in December of this year showed an ejection fraction of 25%. That is pretty much the way it has been going for the past couple of years. He has permanent atrial fibrillation. He has a history of abdominal aortic aneurysm repair. He has diabetes mellitus type 2. He has a history of hypertension. He has PVCs noted on Holter monitor. Additional history, he has been diagnosed with dementia. PAST SURGICAL HISTORY: His surgical history, besides the open-heart procedure and the abdominal aneurysm repair, includes carpal tunnel surgery, knee arthroscopic surgery, hernia surgery, cataract extraction, and polyps removed in the past. HOME MEDICATIONS: At the time of the present admission included albuterol inhaler, Xanax 1 mg twice a day, aspirin 81 daily, donepezil 10 mg daily, Nexium 20 mg daily, finasteride 5 mg daily, furosemide 40 mg daily, Vistaril as needed, Namenda, Glucophage 500 twice a day, metoprolol succinate 25 daily, oxycodone for pain, Januvia 50 mg daily, Zocor 20 mg daily, valsartan 40 daily, warfarin as directed. His INR on the day of admission was elevated at 4.30. Today, it is 4.03. Of note, the patient has developed a "hematoma" in the left upper leg. There is an area of redness and tenderness. An ultrasound of the leg was done this morning and it shows no DVT. It is probably some sort of subcutaneous bleeding. SOCIAL HISTORY: He lives with his . He has children. He quit smoking a long time ago. Not a drinker. He has been retired for a long time. FAMILY HISTORY: Reviewed and noncontributory. REVIEW OF SYSTEMS: Generally debilitated. He has no specific pains anywhere at this time. No other significant positives in the review of systems other than the fact that he has a poor appetite. His oral intake has been very poor lately. He seems to be getting more feeble in that his memory is getting worse. His granddaughter was at the bedside today. PHYSICAL EXAMINATION: Vital Signs: Blood pressure is 101/63, temperature 91 degrees, pulse 78, respirations 16. He is elderly, chronically ill, pale looking. HEENT: Unremarkable. Chest: Sounds clear to auscultation and percussion. Heart sounds are irregularly irregular. I do not hear any gallop or murmur. Abdomen: Soft, nontender. Extremities: Showed the area of redness, induration, warmth in the left upper extremity. This looks like cellulitis but more than likely, it is just some sort of deep seated hematoma. Neurological Examination: Follows commands with four extremities. Memory is not good. LABORATORY DATA: Blood work: Hemoglobin 11.9, hematocrit 35.2. His electrolytes have not been checked today. IMPRESSION: 1. The patient came into the hospital with hypotension, debilitated, generally weak. This is probably multifactorial. 2. History of severe coronary heart disease, previous bypass surgery with progression of disease. 3. Chronic systolic heart failure, significantly impaired systolic function. 4. Permanent atrial fibrillation. 5. Premature ventricular contractions, ventricular arrhythmia. 6. Previous abdominal aortic aneurysm repair. 7. History of diabetes mellitus. 8. History of hypertension. 9. 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 10. Chronic obstructive pulmonary disease. 11. General debility/ dementia. RECOMMENDATION: At this time, we will just observe his clinical course. We may want to put on hold all the vasodilators, antihypertensive drugs and just keep him only on beta blockers to control his heart rate. We will see how he does. 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 We will discuss this with primary service. cc: Ron Sigala MD MTDD
--- NOTE | 2019-04-13 12:34 | Diag Imaging Result Doc PS360 ---
EXAM: CT EXT LOWER LEFT W/O CON 04/13/2019 HISTORY: L leg infection TECHNIQUE: This exam was performed using automated exposure control, adjustment of mA or kV according to patient size, and/or use of iterative reconstruction technique. COMMENT: There is dense calcification of the posterior tibial and peroneal and to some extent the anterior tibial arteries. There is no evidence of fracture or dislocation periosteal reaction or erosion of the osseous structures. There is a total knee prosthesis. There is subcutaneous edema anteriorly and laterally. There is no evidence of discrete fluid collection to suggest an abscess. The possibility of cellulitis cannot be excluded. IMPRESSION: Soft tissue edema. No acute bony abnormality. Electronically signed by Praneeth Lobo 04/13/2019 12:31 PM
[2019-04-13] MEDS ORDERED: MAGNESIUM SULFATE 2 GM/S.W.I. 2 GM/50 ML IVPB IV ONE (16:17)
--- NOTE | 2019-04-13 17:40 | PROGRESS NOTE ---
DATE: 04/13/2019 SUBJECTIVE: Patient has no major complaints. OBJECTIVE: Vital signs: Blood pressure is 101/63, heart rate of 85, respiratory rate of 14, temperature was 98.1 degrees. Cardiovascular: Regular rate and rhythm. Pulmonary: Bilateral breath sounds. Clear to auscultation. GI: Soft, nontender, nondistended. Bowel sounds are positive. LABORATORY DATA: White count 6, hemoglobin and hematocrit 11 and 35, platelets 194,000. INR is 4. Comp was normal. PROBLEM LIST: 1. Cellulitis of the left lower extremity. Seems to be doing okay. He is on IV antibiotics which is a combination of cefepime and vancomycin. 2. Transient hypotension, likely related to sepsis, low blood pressure. We will continue IV fluids and follow. 3. INR coagulopathy, iatrogenic. We will continue to hold Coumadin and follow INR. 4. Atrial fibrillation. Appears to be stable. DISPOSITION: Pending clinical status. explains that he has been very just weak and tired from recent XRT treatment for cancer. He has just been wiped out, but we will continue supportive measures and follow. cc: Hugo Ferraro MD
[2019-04-13] MEDS: VANCOMYCIN 1,250 MG in NS 250 ML IV SCH (21:59)
[2019-04-14] MEDS: NS 1,000 ML IV SCH (05:08)
[2019-04-14] MEDS: NORCO-7.5 PO SCH ×3 (05:39→16:18)
[2019-04-14 07:58] LABS: AGAP 9; BUN 11 mg/dL (8-22); CALCIUM 8.8 mg/dL (8.8-10.2); CHLORIDE 108 mmol/L (98-107); COSMO 276; CREATININE 0.6 mg/dL (0.7-1.2); ESTIMATED GFR > 60; GLUCOSE 147 mg/dL (70-104); MAGNESIUM 1.6 mg/dL (1.5-2.7); PHOSPHORUS 1.7 mg/dL (2.7-4.5); POTASSIUM 3.6 mmol/L (3.5-5.1); SODIUM 137 mmol/L (136-145); TCO2 20 mmol/L (25-35)
--- NOTE | 2019-04-14 08:06 | CARDIOLOGY PROGRESS NOTE ---
DATE: 04/14/2019 CHIEF COMPLAINT: Weakness, hypotension. SUBJECTIVE: Mr. Meléndez seems to be doing better. The swelling of his left leg seems to be a little less. Also, he does not have a whole lot of swelling on his face. His is at the bedside. She believes that he is looking better. OBJECTIVE: VITAL SIGNS: Temperature 99 degrees, pulse 85, respirations 16, blood pressure 128/59. GENERAL: He is awake, appears to be in better spirits than yesterday. HEENT: Unremarkable. He has an open sore on the left side of his scalp. HEART: Sounds are irregularly irregular. CHEST: Clear to auscultation and percussion. ABDOMEN: Nontender. EXTREMITIES: Showed redness and swelling of the upper portion of the left leg with some diffuse mild redness below following the anterior portion of the tena. NEUROLOGICAL: Follows commands, moves 4 extremities. He is hard of hearing. IMPRESSION: 1. Patient presented with general debility, hypotension. 2. History of basal cell carcinoma of the left side of his scalp with a mass tumor like (metastasis) to the left parotid gland, s/p completion of radiation therapy. 3. Chronic systolic heart failure, low ejection fraction at 25% range. 4. Severe coronary heart disease, past surgery. 5. Pretty much ventricular beats/ventricular arrhythmia. 6. History of diabetes. 7. History of previous AAA repair. 8. COPD. 9. Dementia. RECOMMENDATIONS: At this time, I would suggest to continue with current course of action. I would suggest to resume Digoxin to control his heart rate. He had been taking 0.125 mg daily. We will put him back on it. We will see how he does. cc: Ron Sigala MD [facility]
[2019-04-14 08:25] LABS: BASO# 0.01 X1000 (0.0-0.2); BASO% 0.2 % (0.0-0.8); EOS# 0.05 X1000 (0.0-0.7); EOS% 1.2 % (0.0-10.0); HEMATOCRIT 29.4 % (42.0-52.0); HEMOGLOBIN 9.9 g/dL (14.0-18.0); LYMPH# 0.52 X1000 (1.2-3.4); LYMPH% 12.4 % (20.5-51.1); MCH 32.1 PG (27-31); MCHC 33.7 g/dL (33-37); MCV 95.5 FL (81-99); MONO# 0.26 X1000 (0.11-0.59); MONO% 6.2 % (1.7-9.3); MPV 9.8 FL (7.4-10.4); NEUT# 3.37 X1000 (1.4-6.5); PLT 174 X1000 (130-400); RBC 3.08 XMIL (4.7-6.1); RDW 14.4 % (11.5-14.5); WBC 4.21 X1000 (4.8-10.8)
[2019-04-14] MEDS: MAXIPIME 2 GM in NS 100 ML IV SCH ×2 (11:00→21:40)
[2019-04-14] MEDS: ASPIRIN EC PO SCH (11:00)
[2019-04-14] MEDS: ARICEPT PO SCH (11:00)
[2019-04-14] MEDS: TOPROL XL PO SCH (11:00)
[2019-04-14] MEDS: NAMENDA PO SCH ×2 (11:00→21:40)
[2019-04-14] MEDS: PROSCAR PO SCH (11:00)
[2019-04-14] MEDS: SYNTHROID PO SCH (11:00)
--- NOTE | 2019-04-14 13:04 | Extremity Venous Study ---
PROCEDURE NAME: Venous U/S Left Leg - 04/13/2019 PROCEDURE: Left lower extremity venous study. DATE OF STUDY: 04/13/2019. REQUESTING PHYSICIAN: Dr. Majano. REWIND OPERATOR: Seymour. INDICATIONS: Pain and redness in the left leg. EQUIPMENT: [employer] E 9 ultrasound system with a 9 L-D transducer. FINDINGS: Imaging of the left lower extremity venous system with comparison shot to the right common femoral vein were obtained in both sagittal and transverse planes. Doppler was used to evaluate veins for spontaneity, phasicity, respiratory excursion, and digital augmentation. RESULTS: Normal venous compression, normal venous flow. No obvious superficial or deep venous thrombosis noted. INTERPRETATION: Essentially normal left lower extremity venous study. cc: MD Ayush Zapata MD
--- NOTE | 2019-04-14 13:39 | INFECTIOUS DISEASE PROGRESS NO ---
DATE: 04/14/2019 PRESENT ILLNESS: The patient has cellulitis of the left leg. MEDICATIONS: The patient is receiving a combination of Zyvox and cefepime. PHYSICAL EXAMINATION: Vital Signs: Temperature is 99.6 degrees, pulse 74, respirations 16, blood pressure 114/45. General: This is an ill-appearing elderly male. He is in no acute distress. Head, Eyes, Ears, Nose, and Throat: The patient has no hair on the left side of his skull. There is a large eschar present. This is due to radiation effects. Neck: No pain with movement of the neck. Lungs: Clear to auscultation. Cardiovascular: Heart rate is regular. Abdomen: Soft and nontender. Neurologic: Patient is alert. He can ambulate. There is no tremor. DIAGNOSTIC STUDIES: CBC shows a white count of 4210, hemoglobin 9.9, platelet count 174,000. Creatinine is 0.6, GFR is greater than 60. Blood cultures are sterile. CT scan of the left lower extremity showed soft tissue edema which could be due to cellulitis. ASSESSMENT AND PLAN: I think the patient has cellulitis of the leg. I plan to continue the current antibiotics, namely cefepime and vancomycin. Also, I have urged the patient to elevate his leg as much as possible. I think in a few days, the patient could be discharged. I would suggest discharging him on a combination of Ceftin 500 mg p.o. every 12 hours and doxycycline 100 mg p.o. every 12 hours. I would suggest continuing those 2 antibiotics to be given for 7 to 10 more days. COMORBIDITIES: 1. The patient has congestive heart failure. 2. He had a salivary gland malignancy. 3. He is a diabetic. 4. He has dementia. 5. He has gastroesophageal reflux disease. cc: Rashid Curry MD
[2019-04-14] MEDS ORDERED: LASIX IV ONE (15:51)
[2019-04-14] MEDS: LANOXIN PO SCH (16:09)
[2019-04-14] MEDS ORDERED: SODIUM PHOSPHATE 40 MEQ in NS 250 ML IV ONE (16:39)
[2019-04-14] MEDS ORDERED: PERCOCET-5 PO PRN (16:39)
--- NOTE | 2019-04-14 17:47 | PROGRESS NOTE ---
DATE: 04/14/2019 SUBJECTIVE: The patient has no major complaints. OBJECTIVE: Vital Signs: Blood pressure is 114/45, heart rate 73, respiratory rate 16, temperature 99.6 degrees. Cardiovascular: Regular rate and rhythm. Pulmonary: Bilateral breath sounds, clear to auscultation. Gastrointestinal: Soft, nontender, nondistended. Bowel sounds are positive. LABORATORY DATA: Of 4, hemoglobin and hematocrit of 9.9 and 29, platelets 174,000. Basic was normal. Phos of 1.7. PROBLEM LIST: 1. Cellulitis of his left lower extremity. He is currently on vancomycin and Maxipime. He has got a lot of petechial changes on his legs, but overall is improved. He did have some fever yesterday, but none since then, so ID is following. I really do not have any other changes in antibiotics at this point. I do think he is getting a little swollen, so we are going to continue to follow and treat. 2. Heart failure seems to be doing okay. We will continue treatment and follow. Dr. Sigala has held his Diovan because of his intermittent low blood pressure. 3. Coagulopathy. INR was not checked today. We will analyze that tomorrow and see what the numbers look like. DISPOSITION: Possibly home in a couple days. We are going to continue to see how things look. cc: Hugo Ferraro MD
[2019-04-14] MEDS: GLUCOPHAGE PO SCH (18:27)
[2019-04-14] MEDS: ZOCOR PO SCH (21:40)
[2019-04-14] MEDS: VANCOMYCIN 1,250 MG in NS 250 ML IV SCH (21:57)
[2019-04-15] MEDS: MAXIPIME 2 GM in NS 100 ML IV SCH ×2 (00:17→11:20)
[2019-04-15 06:31] LABS: BASO# 0.01 X1000 (0.0-0.2); BASO% 0.2 % (0.0-0.8); EOS# 0.07 X1000 (0.0-0.7); EOS% 1.5 % (0.0-10.0); HEMATOCRIT 31.9 % (42.0-52.0); HEMOGLOBIN 10.9 g/dL (14.0-18.0); LYMPH# 0.62 X1000 (1.2-3.4); MCH 32.8 PG (27-31); MCHC 34.2 g/dL (33-37); MCV 96.1 FL (81-99); MONO# 0.35 X1000 (0.11-0.59); MONO% 7.3 % (1.7-9.3); MPV 9.9 FL (7.4-10.4); NEUT# 3.73 X1000 (1.4-6.5); PLT 185 X1000 (130-400); RBC 3.32 XMIL (4.7-6.1); RDW 14.5 % (11.5-14.5); WBC 4.78 X1000 (4.8-10.8)
[2019-04-15 06:51] LABS: AGAP 13; BUN 15 mg/dL (8-22); CALCIUM 8.7 mg/dL (8.8-10.2); CHLORIDE 105 mmol/L (98-107); COSMO 281; CREATININE 0.9 mg/dL (0.7-1.2); ESTIMATED GFR > 60; GLUCOSE 154 mg/dL (70-104); POTASSIUM 3.4 mmol/L (3.5-5.1); SODIUM 139 mmol/L (136-145); TCO2 21 mmol/L (25-35)
[2019-04-15 06:56] LABS: INR 1.88
[2019-04-15] MEDS ORDERED: ICAR-C PO SCH (09:00)
[2019-04-15] MEDS ORDERED: PATIENT'S OWN MED BOTH EYES SCH (09:00)
[2019-04-15] MEDS ORDERED: ASPIRIN PO SCH (09:00)
--- NOTE | 2019-04-15 09:41 | INFECTIOUS DISEASE PROGRESS NO ---
DATE: 04/15/2019 PRESENT ILLNESS: The patient has left leg cellulitis. MEDICATIONS: This is day 2 of treatment with cefepime and vancomycin. PHYSICAL EXAMINATION: Vital Signs: Temperature is 98.8 degrees, pulse 89, respirations 16, blood pressure 134/74. General: This is an ill-appearing elderly male. He is in no acute distress. Head/eyes/ears/nose/throat: He can hear my spoken words and see near objects. He is bald on the left side of his head due to radiation therapy. He has an eschar which is present. Neck: No meningismus. Lungs: Clear to auscultation. Cardiovascular: Heart rate is regular. Abdomen: Soft and nontender. Extremities: The patient's left leg still has a petechial rash on the left leg. The leg is tender and it is swollen, but overall I think it is improved since he came in. Neurologic: The patient is alert. He can move his extremities. There is no tremor. LAB AND X-RAY: CBC shows a white count of 4780, hemoglobin 10.9, and platelet count 185,000. Creatinine is 0.9, GFR is greater than 60. IMAGING: The is no radiographic study ordered for today. ASSESSMENT AND PLAN: The patient has leg cellulitis. It is swollen and there is edema in the foot. My plan now is to continue with vancomycin and cefepime and I have ordered to keep the foot of the bed elevated by the manual Gatch and to have the patient elevate his legs for as long as possible. If the patient is going to be discharged soon, I would suggest sending him home on Ceftin 500 mg p.o. every 12 hours and doxycycline 100 mg p.o. every 12 hours with both of them being taken for another 7 to 10 days. Also, I would encourage having the patient elevating his legs as high and as long as possible. COMORBIDITIES: They include congestive heart failure, salivary gland malignancy, diabetes mellitus, dementia, and gastroesophageal reflux disease. cc: Rashid Curry MD
--- NOTE | 2019-04-15 09:54 | INFECTIOUS DISEASE PROGRESS NO ---
DATE: 04/15/2019 ADDENDUM: I discussed the patient's case with Dr. Ferraro. We agree to send the patient home. I talked to the patient and his , and both want to be sent home. I told them that the patient needs to elevate his legs for as long as possible, and I have electronically sent a prescription to the patient's pharmacy which is the [facility] for Ceftin 500 mg p.o. every 12 hours for 11 days and doxycycline 100 mg p.o. every 12 hours for 11 days also. I plan on having the patient come back to my office in 11 days. Some of the side effects of the antibiotics, including rash, diarrhea and avoiding sunlight, have been explained to the patient and his . They agree with treatment. I have requested that the patient come to my office for followup appointment in 11 days. I told the patient and his that it is very important to keep his legs elevated for as long as possible. cc: Rashid Curry MD
[2019-04-15] MEDS: ARICEPT PO SCH (10:11)
[2019-04-15] MEDS: NAMENDA PO SCH (10:12)
[2019-04-15] MEDS: GLUCOPHAGE PO SCH (10:12)
[2019-04-15] MEDS: PROSCAR PO SCH (10:13)
[2019-04-15] MEDS: SYNTHROID PO SCH (10:13)
[2019-04-15] MEDS: TOPROL XL PO SCH (10:13)
[2019-04-15] MEDS: ASPIRIN EC PO SCH (10:15)
[2019-04-15] MEDS: LANOXIN PO SCH (10:15)
[2019-04-15] MEDS ORDERED: KLOR-CON PO ONE (10:36)
[2019-04-15 11:35] VITALS: BP 104/55
--- NOTE | 2019-04-15 12:47 | DISCHARGE SUMMARY ---
ADMISSION DATE: 04/12/2019 DISCHARGE DATE: 04/15/2019 DISCHARGE DIAGNOSES: 1. Cellulitis of left lower extremity. 2. History of congestive heart failure with mild decompensation. 3. Coagulopathy. CONSULTATIONS: 1. Rubén Curry MD, ID. 2. Ron Sigala MD, Cardiology. HOSPITAL COURSE: Briefly this is a 78-year-old male with history of hypertension, left leg swelling and pain, supratherapeutic INR, history of atrial fibrillation, mild volume depletion. He came in with pain and swelling in his leg. He has an EF of 20%. He has a basal cell salivary gland cancer for which he had been getting XRT that he has completed. He has no DVT. His CT scan did not show any deep infection. Dr. uCrry evaluated him and recommended vancomycin and cefepime. He was initially placed on Zosyn. He clinically improved. Cardiology evaluated him and felt there was not an acute issue going on, that this was related to his infection, and recommended holding his vasodilators because his blood pressure had been on the low side. He improved. Dr. Curry on the felt that he was ready to go home, and he will be discharged on Ceftin for 11 days and doxycycline for 11 days. DISCHARGE MEDICATIONS: As follows: Zocor 20 at bedtime. Aricept 10 daily. Aspirin 81 daily. Coumadin 6 mg Friday, Friday, Friday, Friday. Diovan will be held until his blood pressure stabilizes or at the discretion of PCP or Dr. Sigala. Proscar 5 daily. Glucophage 500 b.i.d. Icar C 45 daily. Namenda 10 b.i.d. Nexium 20 daily. Zofran p.r.n. Percocet p.r.n. Synthroid 125 daily. Albuterol daily. Nitroglycerin p.r.n. Ceftin 500 q.12 h. for 11 days. Doxycycline 100 q.12 h. Flomax 0.4 daily, that will need to be monitored. Januvia 50 daily. Lasix 40 as needed, that is not a chronic medication. Toprol 25 daily, that will be continued. Hydroxyzine as needed. FOLLOW-UP: Follow up with: 1. His PCP in 1 to 2 weeks, who is Dr. Harman Voss. 2. [facility] 2 to 4 weeks, [address]. Sigala. 3. Dr. Curry I think in 2 to 3 weeks. DISCHARGE INSTRUCTIONS: Return for worsening pain, swelling, or fevers. COORDINATION TIME: A 32-minute discharge. cc: Hugo Ferraro MD
== END 2019-04-15 12:39 | disposition home health service (06) | DRG 603 ==
LOC: SUPCPDRO → ED 14:55 → SUATTDRO 23:29 → 4N 23:29
PROVIDERS: ATTEND Internal Medicine